=== PATIENT | female | born 1960 | race Caucasian/White ===

== ENCOUNTER 2019-04-22 13:31 | Day surgery (SDC) | payer OTHER ==
[2019-04-19 15:22] VITALS: BMI 20.7
[~2019-04-22 13:31] MED LIST: DEXAMETHASONE SOD PHOSPHATE 10 MG/ML 1 ML VIAL IV ONE; HYDROmorphone 0.5 MG/0.5 ML SYRINGE IVP PRN; LACTATED RINGERS 1,000 ML IV SCH; MIDAZOLAM 2 MG/2 ML VIAL IV PRN; ONDANSETRON 4 MG/2 ML VIAL IVP ONE; SCOPOLAMINE 1.5MG/72HR PATCH TRANSDERM ONE; ceFAZolin IN SWFI 2 GM/20 ML SYRINGE IVP ONE
[2019-04-22] MEDS ORDERED: LIDOCAINE 1% 20 ML VIAL (10MG/ML) FOR IV START INTRADERMA ONE (14:13)
[2019-04-22] MEDS ORDERED: MIDAZOLAM (PF) 2 MG/2 ML VIAL IVP ONE (14:41)
[2019-04-22] MEDS ORDERED: GLYCOPYRROLATE 0.2 MG/ML 2 ML VIAL ONE (15:07)
[2019-04-22] MEDS ORDERED: PROPOFOL 10 MG/ML 20 ML VIAL IV ONE (15:07)
[2019-04-22] MEDS ORDERED: ROPIVACAINE 5 MG/ML 30 ML VIAL ONE (15:07)
[2019-04-22] MEDS ORDERED: diphenhydrAMINE 50 MG/ML 1 ML VIAL ONE (15:07)
[2019-04-22] MEDS ORDERED: MIDAZOLAM 2 MG/2 ML VIAL ONE (15:07)
[2019-04-22] MEDS ORDERED: KETAMINE 10 MG/ML 20 ML VIAL ONE (15:07)
[2019-04-22] MEDS ORDERED: fentaNYL (PF) 50 MCG/ML 2 ML AMP ONE (15:07)
[2019-04-22] MEDS ORDERED: LIDOCAINE 2%-EPI 1:100,000 20 ML VIAL ONE (15:07)
[2019-04-22] MEDS ORDERED: PHENYLEPHRINE-0.9% NACL SYG 1 MG/10 ML SYRINGE ONE (15:07)
[2019-04-22] MEDS ORDERED: BUPIVACAIN-EPI 0.5%-1:200,000 30 ML VIAL SQ ONE (15:12)
[2019-04-22] MEDS ORDERED: LACTATED RINGERS 1,000 ML IV ONE (15:41)
--- NOTE | 2019-04-22 16:20 | P.ANPRN ---
Procedure Note - Anesthesia - Nerve Block Performed Right Axillary Single Time Out Performed: Yes Date of Procedure: 04/22/19 Procedure Start Time: 14:15 Procedure Stop Time: 14:22 Location of Patient Procedure: PreOp Indication: Acute Post-Operative Pain, Dx/Pain Location (Right Wrist Pain) Sedation Type: Sedate with meaningful contact maintained Preparation: Sterile Prep Position: Supine Catheter: None Needle Types: Pajunk Needle Gauge: 21 Technique: Ultrasound Injectate: 0.5% Ropivacaine (see comment for volume) (20ml) Blood Aspirated: No Pain Paresthesia on Injection Noted: No Resistance on Injection: Normal Events: Uneventful and Well Tolerated
[2019-04-22 17:26] VITALS: TEMP 97.6
--- NOTE | 2019-04-22 17:44 | P.OP ---
Date of Procedure: 04/22/19 Preoperative Diagnosis: 1. Displaced intra-articular right distal radius fracture 2. Nicotine addiction Postoperative Diagnosis: 1. Displaced intra-articular right distal radius fracture 2. Nicotine addiction Procedure(s) Performed: Open reduction and internal fixation of displaced, intra-articular right distal radius fracture (3 parts) Implants: Acumed Acu-loc2 narrow left locking volar distal radius plate with locking and cortical screws Anesthesia: MAC, regional, local Surgeon: Jesse Fernandez Timing Inspector #1: Aubrie Morejon Estimated Blood Loss (ml): 10 Condition: stable Disposition: PACU Indications for Procedure: The patient is a 58-year-old female who spends to mechanical fall, resulting in a displaced right distal radius fracture. Treatment options (and associated risks and benefits) were discussed in the office. Surgical treatment was recommended. In preop, the patient denied any additional questions or concerns and wished to proceed with surgery. Consent forms were signed. The operative site was confirmed and marked. Description of Procedure: The patient was administered a regional nerve block by the anesthesia team and then was brought to the operating suite. She was positioned supine with the ope rative limb on an arm board. All bony prominences were well-padded. Monitored anesthesia was administered uneventfully. Prophylactic IV antibiotics were administered. A tourniquet was placed on the operative arm which was then prepped and draped in standard, sterile fashion. A timeout was performed, confirming the patient, the operative side, the site and the procedure to be performed: all team members expressed agreement. The limb was exsanguinated with an Esmarch and the tourniquet was inflated. A standard volar FCR approach was utilized. The skin was incised sharply. The subcutaneous tissue were bluntly spread. The FCR sheath was incised and the tendon was mobilized. The radial artery was identified and protected throughout the case. Blunt dissection proceeded down to the pronator quadratus. This was sharply released along its radial border and & subperiosteally elevated ulnarly. The fracture site was visualized. The primary fracture line was transverse across the metaphysis. A separate intra-articular fracture involving the radial styloid had been identified on preoperative imaging but was not visualized grossly from the volar surgical exposure. A manual reduction was attempted but full yarsanism of radial height and dorsal tilt was not achieved. A Perkins elevator was used to gently release the impacted dorsal fragments. The reduction maneuver was repeated and sati sfactory initial alignment was confirmed with fluoroscopy. With the fracture held in reduced position, a 0.062 K wire was inserted percutaneously into the radial styloid and advanced across the fracture and into metaphysis for provisional reduction. The plate was selected, based on the patients anatomy and fracture pattern, and was positioned on the volar radius. It was provisionally pinned in place with K-wires and its position was confirmed on imaging. A cortical screw was drilled, measured and inserted into the oblong hole of the shaft. The position of the plate was checked on orthogonal views: residual dorsal angulation and radial column shortening remained. The distal K wires holding the plate were removed. The K wire through the radial styloid was withdrawn back across the fracture site. The fracture was manipulated again to improve radial length and volar tilt. This was confirmed on imaging and the distal provisional K wires were reinserted. Locking screws were then drilled, measured and inserted distally, confirming length and trajectory with fluoroscopy. An additional cortical screw was drilled and inserted to further secure the plate to the metaphysis. The percutaneous and provisional K wires were removed. Final x-rays were obtained which revealed satisfactory reduction of the fracture. An inclined lateral view was obtained to confirm extra-articular screw placement. The wrist was then ranged under live fluoroscopy - no motion of the fracture fragments or fixation construct was appreciated. The tourniquet was released after 66 minutes at 250 mm Hg. Hemostasis was obtained with electrocautery and held pressure but there was mild persistent oozing from the tissues, likely secondary to the patient's pre-op use of aspirin and Plavix. The wound was thoroughly irrigated with normal saline. The pronator was placed back in its normal position but was not repaired. The incision was closed with a running 4-0 nylon suture. Marcaine with epinephrine was injected into the perioperative subcutaneous tissues for adjunctive postoperative pain control and hemostasis. A sterile dressing was applied followed by a resting volar splint. All sponge, needle and instrument counts were correct at the end of the case. The patient tolerated the procedure well and was taken to the recovery room in stable condition.
[2019-04-22 18:09] VITALS: BP 135/88; PULSE 93; RESP 16
--- NOTE | 2019-04-23 11:36 | FL ---
Fluoroscopy History: ORIF radius fracture ORIF RIGHT DISTAL RADIUS-1 min 23 sec fl
== END 2019-04-22 18:26 | disposition home or self-care (01) ==
LOC: OR 13:31
PROVIDERS: ATTEND Orthopaedic Surgery
DX: S52.571A Other intraarticular fracture of lower end of right radius, initial encounter for closed fracture (principal); W17.89XA Other fall from one level to another, initial encounter; Y93.89 Activity, other specified; I10 Essential (primary) hypertension; E78.2 Mixed hyperlipidemia; E03.9 Hypothyroidism, unspecified; I69.320 Aphasia following cerebral infarction; K21.9 Gastro-esophageal reflux disease without esophagitis; F17.210 Nicotine dependence, cigarettes, uncomplicated; H91.92 Unspecified hearing loss, left ear; Z90.710 Acquired absence of both cervix and uterus; G56.01 Carpal tunnel syndrome, right upper limb; Z79.02 Long term (current) use of antithrombotics/antiplatelets; Z79.1 Long term (current) use of non-steroidal anti-inflammatories (NSAID); Z79.890 Hormone replacement therapy; Z79.891 Long term (current) use of opiate analgesic; Z79.899 Other long term (current) drug therapy; Z79.82 Long term (current) use of aspirin
CPT/HCPCS: 25609; 64417; 73100; C1713; J2250 ×2; J1200; J1100; J2405; J3010; J2795; J2370; J2704; J0690; 64413; 64486

== ENCOUNTER → 2023-04-24 | Outpatient (CLI) | payer OTHER ==
--- NOTE | 2023-04-28 08:04 | PE ---
EXAMINATION TYPE: PET CT fusion skull to thigh DATE OF EXAM: 04/24/2023 COMPARISON: NONE at this institution. HISTORY: Solitary pulmonary nodule, recent abnormal CT TECHNIQUE: Following the intravenous administration of 10.0 mCi of F-18 FDG, whole body images are p erformed from the skull base to the midthigh. Images are reviewed on the computer in the coronal, ax ial, and sagittal planes. Reconstructed rotating images are created on independent workstation and r eviewed on the computer. A localization and attenuation correction CT is performed in conjunction w ith the PET scan. Blood glucose level equals 83. SCAN: Initial Scan FINDINGS: SKULL BASE AND NECK: Mild increased symmetric uptake anterior tongue base presumed physiologic. Mild diffuse uptake throughout slightly enlarged thyroid gland, correlate for possible hyperthyroidism. N o suspicious hypermetabolic masses or adenopathy. CHEST, MEDIASTINUM, AND HILAR REGION: Wedge-shaped mass and/or masslike consolidation extending from left hilar region through the anterior left lung apex. Masslike hypermetabolic uptake measures approx imate 6.5 x 6.7 cm axial image 67 abutting the mediastinum, max SUV is 11.07. Abnormal hypermetabolic subcentimeter lymph node anterior to the aortic arch axial image 59, Max SUV is 4.25 on axial image 62. No abnormal hypermetabolic uptake in the right lung. ABDOMEN AND PELVIS: Abnormal hypermetabolic 3.0 cm round subtle low density mass in the distal pancre atic body axial image 118, max SUV is 10.57 on axial image 121. OSSEOUS STRUCTURES: No areas of abnormal hypermetabolic uptake. S-shaped scoliosis is noted. OTHER CT: Ygun-re-gfwjqpin calcified plaque bilateral carotid bulb level. Moderate to severe three-ve ssel coronary artery calcification. Moderate to large size hiatal hernia. Gallbladder has distended margins. Atherosclerotic and aneurysmal abdominal aorta measuring up to 3.7 cm transversely axial image 128. Patient has little intra-abdominal fat. Scattered pelvic phlebolith s. Uterus surgically absent or markedly atrophic. IMPRESSION: Suspicious central left mid lung mass worrisome for neoplasm with postobstructive atelect asis into the left lung apex. Possible metastatic lesion as there is additional suspicious hypermetab olic mass in the distal pancreatic body. Bronchoscopy with sampling and CT-guided sampling of pancrea tic lesion should be considered to evaluate both levels.
== END | disposition home or self-care (01) ==
LOC: RADPETMAIN 11:33
PROVIDERS: ATTEND Internal Medicine
DX: J98.11 Atelectasis (principal); R91.1 Solitary pulmonary nodule
CPT/HCPCS: 78815; A9552

== ENCOUNTER 2023-05-18 11:16 | Day surgery (SDC) | payer OTHER ==
[2023-05-13 12:21] VITALS: BMI 20.5
[~2023-05-18 11:16] MED LIST changes: -DEXAMETHASONE SOD PHOSPHATE 10 MG/ML 1 ML VIAL IV ONE; -HYDROmorphone 0.5 MG/0.5 ML SYRINGE IVP PRN; +LIDOCAINE 1% (10MG/ML) FOR IV START INTRADERMA PRN; -MIDAZOLAM 2 MG/2 ML VIAL IV PRN; -ONDANSETRON 4 MG/2 ML VIAL IVP ONE; -SCOPOLAMINE 1.5MG/72HR PATCH TRANSDERM ONE; -ceFAZolin IN SWFI 2 GM/20 ML SYRINGE IVP ONE
[2023-05-18 12:08] LABS: Glucose,Whole Blood 112 mg/dL (70-110)
[2023-05-18] MEDS ORDERED: PHENYLEPHRINE-0.9% NACL SYG 1,000 MCG/10 ML SYRINGE ONE (12:16)
[2023-05-18] MEDS ORDERED: NEOSTIGMINE 1 MG/ML 10 ML VIAL ONE (12:16)
[2023-05-18] MEDS ORDERED: PROPOFOL 10 MG/ML 20 ML VIAL IV ONE (12:16)
[2023-05-18] MEDS ORDERED: GLYCOPYRROLATE 0.2 MG/ML 2 ML VIAL ONE (12:16)
[2023-05-18] MEDS ORDERED: MIDAZOLAM 2 MG/2 ML VIAL ONE (12:16)
[2023-05-18] MEDS ORDERED: KETAMINE 10 MG/ML 20 ML VIAL ONE (12:16)
[2023-05-18] MEDS ORDERED: SUCCINYLCHOLINE CHLORIDE 200 MG/10 ML VIAL IV ONE (12:16)
[2023-05-18] MEDS ORDERED: ROCURONIUM 10 MG/ML (5 ML VIAL) IV ONE (12:16)
[2023-05-18] MEDS ORDERED: LIDOCAINE 4% LTA KIT (4 ML) TOPICAL ONE (12:16)
[2023-05-18] MEDS ORDERED: LIDOCAINE 2% INJ 20 MG/ML (2 ML VIAL) ONE (12:16)
--- NOTE | 2023-05-18 13:08 | P.PCN ---
Date of Procedure: 05/18/23 Preoperative Diagnosis: Left upper lobe mass Postoperative Diagnosis: Left upper lobe mass Procedure(s) Performed: Flexible bronchoscopy, transbronchial biopsies, transbronchial brushing, bronchial lavage of the left upper lobe Endobronchial ultrasound and transbronchial needle aspirate of the left upper lobe mass Anesthesia: WILBERT Surgeon: Regina Coronado Estimated Blood Loss (ml): 5 Operative Findings: This procedure was done under general anesthesia. The patient was intubated by a #8 orotracheal tube. The patient was placed on a mechanical ventilator. An adapter was attached to the orotracheal tube and following that and flexible bronchoscopy was done for airway inspection. Distal trachea was within normal limits. Examination of the right side included the right mainstem bronchus, right upper lobe bronchus, bronchus intermedius, right middle lobe bronchus and right lower lobe bronchus and the various 10 segments on the right. Airways are patent and within normal limits. Examination of the left mainstem bronchus was within normal limits. The ramonita between the left upper lobe and the left lower lobe was within normal limits. The left upper lobe bronchus was gradually more tapered and there was complete obstruction of the left upper lobe apical segment due to circumferential tumor growing around the airway and both extrinsic and intrinsic airway obstruction. Similar findings were seen in the lingular segment although abnormalities were less severe. Examination of the left lower lobe bronchus was within normal limits. The flexible bronchoscope was directed to the apical segment of the left upper lobe and transbronchial biopsies of the left upper lobe mass was done. I was unable to advance the forceps to its full extent as the airway was getting progressively more tapered and obstructed distally. Approximately 6-8 transbronchial biopsies were obtained, and similar number of transbronchial biopsies were obtained from the lingular segment of the left upper lobe. Endobronchial brushings of the apical segment was done using endobronchial brush. Following that, bronchioloalveolar lavage of the left upper lobe was done. A total of 100 mL of fluid was infused and approximately 20 mL of bloody aspirate was obtained. Following that, the flexible bronchoscope was removed and endobronchial ultraso und was inserted. Mediastinal lymph node evaluation showed no significant mediastinal lymph node enlargement. The bronchoscope was then directed to the left upper lobe and the left upper lobe mass was visualized using the ultrasound probe. At that point, transbronchial needle aspirate of the left upper lobe mass was done using a 22-gauge vizishot needle and a total of 5 passes was taken. No endobronchial bleeding. Procedure was completed without any complications. The endobronchial ultrasound was removed. The flexible bronchoscope was inserted. The regular suctioning was done. The patient was extubated and transferred to recovery in stable condition. A chest x-rays to follow. I will contact the patient back within the next few days to discuss the results of the biopsy.
[2023-05-18 13:21] VITALS: TEMP 98
--- NOTE | 2023-05-18 13:44 | XR ---
EXAMINATION TYPE: XR chest 1V DATE OF EXAM: 05/18/2023 HISTORY: Status post biopsy rule out pneumothorax COMPARISON: None. TECHNIQUE: Single view of the chest is submitted. FINDINGS: Left upper lobe mass. No evidence of pneumothorax in a patient who is status post biopsy. The heart is stable. Hilar and mediastinal structures are within normal limits. Degenerative changes are seen of the dorsal spine. IMPRESSION: 1. No evidence of pneumothorax in a patient who is status post biopsy.
[2023-05-18 14:09] VITALS: RESP 18
[2023-05-18 14:30] VITALS: PULSE 78
[2023-05-18 15:03] VITALS: BP 147/78
== END 2023-05-18 15:03 | disposition home or self-care (01) ==
LOC: ORWHC2ENDO 11:16
PROVIDERS: ATTEND Internal Medicine Critical Care Medicine
DX: C34.32 Malignant neoplasm of lower lobe, left bronchus or lung (principal); J44.9 Chronic obstructive pulmonary disease, unspecified; I10 Essential (primary) hypertension; E03.9 Hypothyroidism, unspecified; E78.2 Mixed hyperlipidemia; K21.9 Gastro-esophageal reflux disease without esophagitis; Z86.73 Personal history of transient ischemic attack (TIA), and cerebral infarction without residual deficits; Z79.1 Long term (current) use of non-steroidal anti-inflammatories (NSAID); Z79.82 Long term (current) use of aspirin; Z87.891 Personal history of nicotine dependence; Z79.891 Long term (current) use of opiate analgesic; Z79.890 Hormone replacement therapy; Z79.899 Other long term (current) drug therapy
CPT/HCPCS: 31654; 88104; 88108; 88305; 88342; 88341; 71045; 31628; 31629; 31623; 31624; J2250; J0330; J2710; J2704; J2001; J2371; 31625; 31652; 87070; 87102; 87116; 87205; 87206; 87496; 87498; 87502; 87529; 87634; 87798

== ENCOUNTER → 2023-06-01 | Outpatient (CLI) | payer OTHER ==
--- NOTE | 2023-06-01 16:06 | US ---
EXAMINATION TYPE: US venous doppler duplex UE LT DATE OF EXAM: 06/01/2023 COMPARISON: NONE CLINICAL INDICATION: Female, 62 years old with history of C34.12 MALIGNANT NEOPLASM UPPER LOBE, LT BR ONCHUS OR LUNG; Pain and edema left neck. Patient on blood thinner SIDE PERFORMED: left Left Arm: no evidence of DVT as visualized. Rouleaux flow left jugular vein. Multiple hypoechoic area s noted left neck with largest = 1.8 x 1.7 x 1.8cm ?lymph nodes vs other etiology IMPRESSION: Grayscale, color doppler, spectral doppler imaging performed of the deep veins of the upper extremiti es. There is normal flow, compressibility and vascular waveforms.
== END | disposition home or self-care (01) ==
LOC: RADUSWWP 14:59
PROVIDERS: ATTEND Radiology Radiation Oncology
DX: C34.12 Malignant neoplasm of upper lobe, left bronchus or lung (principal); Z79.01 Long term (current) use of anticoagulants

== ENCOUNTER → 2023-06-08 | Outpatient (CLI) | payer OTHER ==
--- NOTE | 2023-06-09 21:18 | MR ---
EXAMINATION TYPE: MR brain wo/w con DATE OF EXAM: 06/08/2023 6:57 PM CLINICAL INDICATION:Female, 62 years old with history of C34.11; Lung cancer, Hx of ochoa COMPARISON: None TECHNIQUE: Multi planar, multi sequence imaging was performed through the brain including: T1, T2, In version recovery, susceptibility weighted imaging and gradient echo imaging and Diffusion weighted im aging. The patient was then given intravenous contrast and multi planar, T1 fat-saturation images wer e obtained. IV Contrast: 4.5 cc Gadavist FINDINGS: Left MCA territory/parietal region encephalomalacia from remote injury. No evidence for acu te CVA. Focus of enhancement in the left occipital lobe compatible with metastatic lesion measuring 10 x 6 mm . Additional metastatic enhancing lesion in the left frontal lobe measuring 3 mm. The holloway-white junctions, ventricular system, basal cisterns appear unremarkable. Diffusion-weighted imaging shows no evidence of restricted diffusion to suggest acute/subacute infarct. Intracranial art erial flow voids are maintained. Midline structures show no abnormality. Scattered foci and confluent areas of of high T2 signal intensity are seen within the periventricular white matter. The bone marrow signal is within normal limits. Paranasal sinuses and mastoid air cells: No significant paranasal sinus disease. Visualized orbits: Orbital contents are intact. IMPRESSION: 1. There are at least 2 metastatic enhancing foci including the left occipital and left frontal lobes .. 2. No injury to the left parietal region with evidence of focal malacia. 3. No evidence for acute/subacute CVA. 4. Nonspecific white matter changes, likely related to small vessel ischemic disease
== END | disposition home or self-care (01) ==
LOC: RADMRIMAIN 17:53
PROVIDERS: ATTEND Internal Medicine
DX: C79.31 Secondary malignant neoplasm of brain (principal); C34.11 Malignant neoplasm of upper lobe, right bronchus or lung; R90.82 White matter disease, unspecified
CPT/HCPCS: 70553; A9585

== ENCOUNTER → 2023-06-18 | Outpatient (CLI) | payer OTHER ==
--- NOTE | 2023-06-18 12:55 | US ---
EXAMINATION TYPE: US thyroid st tissue head/neck DATE OF EXAM: 06/18/2023 COMPARISON: PET CT CLINICAL INDICATION: Female, 62 years old with history of C34.11 LUNG CA; Lung CA, pt states palpable lump left lateral neck x 2 weeks Multiple (>5), probable abnormal, enlarged lymph nodes within left lateral neck in area of pt's pal pable, largest appearing was measured= 2.9 x 1.6 x 1.8 cm IMPRESSION: Abnormal lymph nodes within the neck in the area of palpable abnormality concerning for neoplastic pr ocess given patient's history of lung cancer are favored represent metastatic disease. Not well appre ciated on prior PET/CT on 04/24/2023 suggesting progression of disease.
== END | disposition home or self-care (01) ==
LOC: RADUSWWP 12:20
PROVIDERS: ATTEND Internal Medicine
DX: C34.11 Malignant neoplasm of upper lobe, right bronchus or lung (principal); C25.2 Malignant neoplasm of tail of pancreas; Z71.3 Dietary counseling and surveillance
CPT/HCPCS: 76536

== ENCOUNTER 2023-08-28 16:46 | Inpatient (IN) | payer OTHER ==
--- NOTE | 2023-08-28 17:21 | ED ---
General Adult HPI - General Source: patient, family, RN notes reviewed <Maddison Bob - Last Filed: 08/28/23 17:23> <Tae Salmeron - Last Filed: 08/28/23 21:54> - General Stated complaint: SOB Time Seen by Provider: 08/28/23 17:21 - History of Present Illness Initial comments: 62-year-old female presents to the emergency department with chief complaint of increased shortness of breath. She has a history of lung cancer and has had pleural effusions in the past. She states that she feels similar to when she had her pleural effusions last time. She states that she follows with Dr. Agustín mohan. She had an outpatient chest XR done today. (Maddison Bob) 62-year-old female with past medical history significant for small cell lung cancer follows with Dr. Felix presents to the ED with the chief complaints of dyspnea. Patient notes history of bilateral pleural effusions in the past which have required thoracentesis. Last admission for this was on 07/28/23. Patient states over the last week has had increased dyspnea. Also notes pain of the chest however patient reports that this is consistent with her history of cancer. No abdominal pain. No nausea vomiting diarrhea. No other complaints. (Tae Salmeron) - Related Data Home Medications Medication Instructions Recorded Confirmed Atorvastatin [Lipitor] 40 mg PO DAILY 05/13/23 07/27/23 Cyclobenzaprine [Flexeril] 5 mg PO HS 05/13/23 07/27/23 Levothyroxine Sodium 112 mcg PO DAILY 05/13/23 07/27/23 cilostazoL [Pletal] 100 mg PO BID 05/13/23 07/27/23 atenoloL [Tenormin] 25 mg PO DAILY 05/18/23 07/27/23 fentaNYL 50MCG/HR PATCH [Duragesic 1 patch TRANSDERM Q72H 07/27/23 07/27/23 50MCG/HR] lisinopriL [Zestril] 20 mg PO DAILY 07/27/23 07/27/23 oxyCODONE-APAP 7.5-325MG [Percocet 1 tab PO Q6HR PRN 07/27/23 07/27/23 7.5-325 mg] Previous Rx's Medication Instructions Recorded Acetaminophen Tab [Tylenol] 650 mg PO Q4HR PRN tab 07/28/23 Allergies Allergy/AdvReac Type Severity Reaction Status Date / Time No Known Allergies Allergy Verified 08/28/23 21:53 Review of Systems ROS Other: All systems not noted in ROS Statement are negative. <Maddison Bob - Last Filed: 08/28/23 17:23> ROS Other: All systems not noted in ROS Statement are negative. <Tae Salmeron - Last Filed: 08/28/23 21:54> ROS Statement: Those systems with pertinent positive or pertinent negative responses have been documented in the HPI. Past Medical History Past Medical History: Cancer, CVA/TIA, GERD/Reflux, Hearing Disorder / Deafness, Hyperlipidemia, Hypertension, Musculoskeletal Disorder, Thyroid Disorder Additional Past Medical History / Comment(s): LUNG CANCER. CVA 2014, MILD SPE ECH PROB. TOTAL OF 9 STROKES PER SON. LT EAR HEARING LOSS. Calloped left lung History of Any Multi-Drug Resistant Organisms: None Reported Past Surgical History: Bladder Surgery, Hernia Repair, Hysterectomy Additional Past Surgical History / Comment(s): COLONOSCOPY Past Anesthesia/Blood Transfusion Reactions: No Reported Reaction Past Psychological History: No Psychological Hx Reported Smoking Status: Former smoker Past Alcohol Use History: None Reported Past Drug Use History: Marijuana - Past Family History Father Family Medical History: Cancer Additional Family Medical History / Comment(s): THROAT CA <Maddison Bob - Last Filed: 08/28/23 17:23> General Exam <Maddison Bob - Last Filed: 08/28/23 17:23> General appearance: alert, in no apparent distress ENT exam: Present: normal exam Neck exam: Present: normal inspection Respiratory exam: Present: other (Poor respiratory effort. Crackles bilaterally.) Cardiovascular Exam: Present: regular rate, normal rhythm Neurological exam: Present: alert, oriented X3 Skin exam: Present: warm, dry <Tae Salmeron - Last Filed: 08/28/23 21:54> - General Exam Comments Initial Comments: Visual Physical Exam Vital signs reviewed General: Well-appearing, nontoxic, no acute distress. Head: Normocephalic, atraumatic Eyes: PERRLA, EOMI ENT: Airway patent Chest: Nonlabored breathing Skin: No visual rash, normal skin tone Neuro: Alert and oriented 3 Musculoskeletal: No gross abnormalities (Maddison Bob) Course Vital Signs 08/28/23 08/28/23 08/28/23 17:20 19:09 21:09 Temperature 99.1 F Pulse Rate 100 100 105 H Respiratory 18 20 20 Rate Blood Pressure 141/96 151/78 160/81 O2 Sat by Pulse 100 100 96 Oximetry Medical Decision Making <Maddison Bob - Last Filed: 08/28/23 17:23> - Lab Data Result diagrams: 08/28/23 17:47 08/28/23 17:47 <Tae Salmeron - Last Filed: 08/28/23 21:54> - Medical Decision Making I preformed the quick note portion of this chart. Electronically signed by Maddison Bob PA-C (Maddison Bob) Was pt. sent in by a medical professional or institution (YVES Nguyen, [employer], urgent care, hospital, or longterm...) When possible be specific @ -No Did you speak to anyone other than the patient for history (EMS, parent, family, police, friend...)? What history was obtained from this source @ -No Did you review nursing and triage notes (agree or disagree)? Why? @ -I reviewed and agree with nursing and triage notes Were old charts reviewed (outside hosp., previous admission, EMS record, old EKG, old radiological studies, urgent care reports/EKG's, longterm records)? Report findings @ -No old charts were reviewed Differential Diagnosis (chest pain, altered mental status, abdominal pain women, abdominal pain men, vaginal bleeding, weakness, fever, dyspnea, syncope, headache, dizziness, GI bleed, back pain, seizure, CVA, palpatations, mental health, musculoskeletal)? @ -Differential Dyspnea: Coronary syndrome, arrhythmia, tamponade, asthma, COPD, pulmonary embolism, pneumonia, pneumothorax, pulmonary effusion, anaphylaxis, diabetic ketoacidosis, flailed chest, pulmonary contusion, diaphragmatic rupture, anemia, neuromuscular, this is not meant to be an all-inclusive list. EKG interpreted by me (3pts min.). @ -EKG shows a sinus rhythm at [address]-T wave changes. GA 144, QRS 4, QT/QTc 309/365. X-rays interpreted by me (1pt min.). @ -Chest x-ray interpreted by me showing findings consistent with bilateral pleural effusion appearing worse than prior. CT interpreted by me (1pt min.). @ -None done U/S interpreted by me (1pt. min.). @ -None done What testing was considered but not performed or refused? (CT, X-rays, U/S, labs)? Why? @ -None What meds were considered but not given or refused? Why? @ -None Did you discuss the management of the patient with other professionals (professionals i.e. , PA, [employer], lab, RT, psych nurse, social worker health services, immigration lawyer, teacher, real estate utilization officer, cyanide case hardener)? Give summary @ -Discussed with [facility], who accepts admission. Was smoking cessation discussed for >3mins.? @ -No Was critical care preformed (if so, how long)? @ -No Were there social determinants of health that impacted care today? How? (Homelessness, low income, unemployed, alcoholism, drug addiction, tr ansportation, low edu. Level, literacy, decrease access to med. care, nursing home, rehab)? @ -No Was there de-escalation of care discussed even if they declined (Discuss DNR or withdrawal of care, Hospice)? DNR status @ -No What co-morbidities impacted this encounter? (DM, HTN, Smoking, COPD, CAD, Cancer, CVA, ARF, Chemo, Hep., AIDS, mental health diagnosis, sleep apnea, morbid obesity)? @ -Lung CA Was patient admitted / discharged? Hospital course, mention meds given and route, prescriptions, significant lab abnormalities, going to OR and other pertinent info. @ -Admission 62-year-old woman with a past medical history significant for lung cancer presenting to the ED with chief complaint of progressively worsening dyspnea over the past week. Laboratory studies reviewed significant for elevated white blood cell count at 29.6, anemia at 8.9, thrombocytosis at 745, elevated neutrophils at 27.8, and an elevated BNP at 2470. Chest x-ray revealed bilateral pleural effusion. Patient will be admitted with consult to pulmonology Drug Therapy requiring intensive monitoring for toxicity (Heparin, Nitro, Insulin, Cardizem)? @ -No Were any procedures done? @ -No Diagnosis/symptom? @ -Pleural effusion, dyspnea Acute, or Chronic, or Acute on Chronic? @ -Acute on chronic Uncomplicated (without systemic symptoms) or Complicated (systemic symptoms)? @ -Uncomplicated Side effects of treatment? @ -No Exacerbation, Progression, or Severe Exacerbation? @ -No Poses a threat to life or bodily function? How? (Chest pain, USA, SC, pneumonia, PE, COPD, DKA, ARF, appy, cholecystitis, CVA, Diverticulitis, Homicidal, Suicidal, threat to staff... and all critical care pts) @ -No (Tae Salmeron) - Lab Data Lab Results 08/28/23 08/28/23 08/28/23 Range/Units 17:47 17:47 17:47 WBC 29.6 H (3.8-10.6) k/uL RBC 3.10 L (3.80-5.40) m/uL Hgb 8.9 L (11.4-16.0) gm/dL Hct 28.6 L (34.0-46.0) % MCV 92.3 (80.0-100.0) fL MCH 28.8 (25.0-35.0) pg MCHC 31.3 (31.0-37.0) g/dL RDW 15.6 H (11.5-15.5) % Plt Count 745 H (150-450) k/uL MPV 8.8 Neutrophils % 94 % Lymphocytes % 3 % Monocytes % 2 % Eosinophils % 1 % Basophils % 0 % Neutrophils # 27.9 H (1.3-7.7) k/uL Lymphocytes # 0.8 L (1.0-4.8) k/uL Monocytes # 0.5 (0-1.0) k/uL Eosinophils # 0.2 (0-0.7) k/uL Basophils # 0.0 (0-0.2) k/uL Manual Slide Review Performed Hypochromasia Marked PT 10.9 (10.0-12.5) sec INR 1.0 (<1.2) APTT 28.8 (22.0-30.0) sec Sodium 140 (137-145) mmol/L Potassium 3.8 (3.5-5.1) mmol/L Chloride 105 (98-107) mmol/L Carbon Dioxide 23 (22-30) mmol/L Anion Gap 12 mmol/L BUN 18 H (7-17) mg/dL Creatinine 0.49 L (0.52-1.04) mg/dL Est GFR (CKD-EPI)AfAm >90 (>60 ml/min/1.73 sqM) Est GFR (CKD-EPI)NonAf >90 (>60 ml/min/1.73 sqM) Glucose 86 (74-99) mg/dL Calcium 8.6 (8.4-10.2) mg/dL Total Bilirubin 0.5 (0.2-1.3) mg/dL AST 22 (14-36) U/L ALT 12 (4-34) U/L Alkaline Phosphatase 143 H (38-126) U/L Troponin I (0.000-0.034) ng/mL NT-Pro-B Natriuret Pep pg/mL Total Protein 7.2 (6.3-8.2) g/dL Albumin 2.8 L (3.5-5.0) g/dL 08/28/23 08/28/23 Range/Units 20:08 20:08 WBC (3.8-10.6) k/uL RBC (3.80-5.40) m/uL Hgb (11.4-16.0) gm/dL Hct (34.0-46.0) % MCV (80.0-100.0) fL MCH (25.0-35.0) pg MCHC (31.0-37.0) g/dL RDW (11.5-15.5) % Plt Count (150-450) k/uL MPV Neutrophils % % Lymphocytes % % Monocytes % % Eosinophils % % Basophils % % Neutrophils # (1.3-7.7) k/uL Lymphocytes # (1.0-4.8) k/uL Monocytes # (0-1.0) k/uL Eosinophils # (0-0.7) k/uL Basophils # (0-0.2) k/uL Manual Slide Review Hypochromasia PT (10.0-12.5) sec INR (<1.2) APTT (22.0-30.0) sec Sodium (137-145) mmol/L Potassium (3.5-5.1) mmol/L Chloride (98-107) mmol/L Carbon Dioxide (22-30) mmol/L Anion Gap mmol/L BUN (7-17) mg/dL Creatinine (0.52-1.04) mg/dL Est GFR (CKD-EPI)AfAm (>60 ml/min/1.73 sqM) Est GFR (CKD-EPI)NonAf (>60 ml/min/1.73 sqM) Glucose (74-99) mg/dL Calcium (8.4-10.2) mg/dL Total Bilirubin (0.2-1.3) mg/dL AST (14-36) U/L ALT (4-34) U/L Alkaline Phosphatase (38-126) U/L Troponin I <0.012 (0.000-0.034) ng/mL NT-Pro-B Natriuret Pep 2470 pg/mL Total Protein (6.3-8.2) g/dL Albumin (3.5-5.0) g/dL Disposition <Maddison Bob - Last Filed: 08/28/23 17:23> Time of Disposition: 21:54 <Tae Salmeron - Last Filed: 08/28/23 21:54> Clinical Impression: Dyspnea, Pleural effusion Disposition: ADMITTED IP TO THIS HOSP Referrals: Kerwin Rao MD [Primary Care Provider] - 1-2 days
[2023-08-28 18:30] LABS: Basophils % (A) 0 %; Eosinophils # (A) 0.2 k/uL (0-0.7); Eosinophils % (A) 1 %; HCT 28.6 % (34.0-46.0); HGB 8.9 gm/dL (11.4-16.0); Hypochromasia Marked; Lymphocytes # (A) 0.8 k/uL (1.0-4.8); Lymphocytes % (A) 3 %; MCH 28.8 pg (25.0-35.0); MCHC 31.3 g/dL (31.0-37.0); MCV 92.3 fL (80.0-100.0); Mean Platelet Volume 8.8; Monocytes # (A) 0.5 k/uL (0-1.0); Monocytes % (A) 2 %; Neutrophils # (A) 27.9 k/uL (1.3-7.7); Neutrophils % (A) 94 %; Platelet Count 745 k/uL (150-450); RDW 15.6 % (11.5-15.5); WBC 29.6 k/uL (3.8-10.6)
[2023-08-28 18:42] LABS: ALT 12 U/L (4-34); AST 22 U/L (14-36); African American GFR (CKD) >90 (>60 ml/min/1.73 sqM); Albumin 2.8 g/dL (3.5-5.0); Alkaline Phosphatase 143 U/L (38-126); Anion Gap 12 mmol/L; Blood Urea Nitrogen 18 mg/dL (7-17); Calcium 8.6 mg/dL (8.4-10.2); Carbon Dioxide 23 mmol/L (22-30); Chloride 105 mmol/L (98-107); Glucose 86 mg/dL (74-99); Non-African American GFR(CKD) >90 (>60 ml/min/1.73 sqM); Potassium 3.8 mmol/L (3.5-5.1); Sodium 140 mmol/L (137-145); Total Bilirubin 0.5 mg/dL (0.2-1.3); Total Protein 7.2 g/dL (6.3-8.2)
[2023-08-28 18:45] LABS: Partial Thromboplastin Time 28.8 sec (22.0-30.0); Prothrombin Time 10.9 sec (10.0-12.5)
[2023-08-28] MEDS ORDERED: ACETAMINOPHEN TAB 325 MG TAB PO PRN ×2 (21:54→22:52)
[2023-08-28] MEDS ORDERED: NALOXONE 0.4 MG/ML 1 ML VIAL IV PRN (21:54)
[2023-08-28] MEDS ORDERED: SODIUM CHLORIDE 0.9% 1,000 ML IV SCH (22:00)
[2023-08-28] MEDS ORDERED: ALBUTEROL NEBULIZED 2.5 MG/3 ML INHALATION PRN (22:52)
[2023-08-28] MEDS: lisinopriL 20 MG TAB PO SCH (23:16)
[2023-08-28] MEDS: atenoloL 25 MG TAB PO SCH (23:16)
[2023-08-28] MEDS: CYCLOBENZAPRINE 5 MG TAB PO SCH (23:16)
[2023-08-28] MEDS: HYDROmorphone 1 MG/ML 1 ML SYRINGE IVP PRN (23:17)
[2023-08-28] MEDS: cilostazoL 100 MG TAB PO SCH (23:17)
[2023-08-29] MEDS: LEVOTHYROXINE 112 MCG TAB PO SCH (05:25)
[2023-08-29] MEDS: cilostazoL 100 MG TAB PO SCH ×2 (08:20→20:00)
[2023-08-29] MEDS: lisinopriL 20 MG TAB PO SCH (08:20)
[2023-08-29] MEDS: ATORVASTATIN 40 MG TAB PO SCH (08:20)
[2023-08-29] MEDS: atenoloL 25 MG TAB PO SCH (08:20)
[2023-08-29] MEDS ORDERED: IPRATROPIUM-ALBUTEROL 3 ML NEB INHALATION PRN (09:31)
[2023-08-29] MEDS: HYDROmorphone 1 MG/ML 1 ML SYRINGE IVP PRN (13:08)
--- NOTE | 2023-08-29 13:24 | P.CNPUL ---
History of Present Illness Consult date: 08/29/23 Reason for consult: dyspnea, pleural effusion History of present illness: This is a 62-year-old female patient, hospitalized for shortness of breath. The patient is known to have metastatic non-small cell lung cancer of the lung with malignant left-sided pleural effusion. Initial CAT scan of the chest that was done on 04/06/2023 showed a large 7 x 6 cm pigmented soft tissue mass in the left perihilar region extending into the left upper lobe and invading the mediastinum and also causing obstruction of the left upper lobe bronchus. In a ddition, the patient had several pulmonary nodules largest in the right upper lobe measuring 1.7 cm and 5 mm and another 2 mm another densities in the right lower lobe and a 7 mm nodule in the left upper lobe. PET/CT that was done on 04/24/2023 showed metabolic intake and the involved area and in the distal pancreatic body. I performed a bronchoscopy on this patient on 05/18/2023 and the pathology was consistent with poorly differentiated non-small cell lung cancer. MRI of the brain that was done on 06/08/2023 showed metastatic lesions in the left frontal and occipital lobes. The PDL 1 expression was a mild 90% and the patient had KG 12 C mutation. Subsequently, the patient underwent a endoscopic ultrasound/EGD and biopsy of the pancreatic mass was positive for adenocarcinoma. She started radiation therapy to her left neck mass on 07/22/2023. 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 She did have cycle 1 of single agent Keytruda on 07/08/2023, and later on, the patient was started on libtayo . She presented to the hospital on 07/28/2023 and she was found to have a large left-sided pleural effusion and the drainage was done and the patient had a 1.5 L of fluid removed from the left pleural space and the fluid cytology was also noted to be positive for malignancy. She presented to the emergency department with worsening shortness of breath. Chest x-ray was done and shows a left perihilar mass and a left-sided pleural effusion. I was asked to evaluate the patient regarding left-sided pleural effusion. I noted that the fluid was quite limited and I ordered a CAT scan of the chest. The computed tomography scan of the chest was completed and it showed again a large left upper lobe mass causing complete obstruction of the left upper lobe bronchus. The patient had a very small left- sided pleural effusion and a small right-sided pleural effusion was also noted. The mediastinum on the right side was also involved as the patient had bulky hilar lymphadenopathy, the airway however was patent. Some atelectatic changes seen in the right lung base. A tiny pneumothorax is also present in the left apex. The seconds currently at 29, he was at 8.9, BUN is at 18 with a creatinine of 0.4. Troponins are negative. UA is negative. Hemoglobin is at 8.9. Normal coagulation profile. She is currently on 2 L of oxygen by nasal cannula with a pulse ox of 98%. She is afebrile. Breathing is nonlabored. Review of Systems CONSTITUTIONAL: Admits weight loss. EYES: Denies change in vision. EARS, NOSE, MOUTH, THROAT: Denies headaches, denies sore throat. CARDIOVASCULAR: Denies chest pain, palpitations or syncopal episodes. RESPIRATORY: See HPI. The patient continues to have shortness of breath with activity. No pleurisy. No hemoptysis. GASTROINTESTINAL: Denies change in appetite, abdominal pain, nausea and vomiting, or diarrhea GENITOURINARY: Denies hematuria, denies infections. MUSKULOSKELETAL: Denies pain, denies swelling. INTEGUMENTARY: Denies rash, denies eczema. NEUROLOGICAL: Denies recent memory loss, no recent seizure activity. PSYCHIATRIC: Denies anxiety, denies depression. HEMATOLOGIC/LYMPHATIC: Denies anemia, denies enlarged lymph node Past Medical History Past Medical History: Cancer, CVA/TIA, GERD/Reflux, Hearing Disorder / Deafness, Hyperlipidemia, Hypertension, Musculoskeletal Disorder, Thyroid Disorder Additional Past Medical History / Comment(s): LUNG CANCER. CVA 2015, MILD SPEECH PROB. TOTAL OF 9 STROKES PER SON. LT EAR HEARING LOSS. Collapsed left lung History of Any Multi-Drug Resistant Organisms: None Reported Past Surgical History: Bladder Surgery, Hernia Repair, Hysterectomy Additional Past Surgical History / Comment(s): COLONOSCOPY, thoracentesis Past Anesthesia/Blood Transfusion Reactions: No Reported Reaction Past Psychological History: No Psychological Hx Reported Smoking Status: Former smoker Past Alcohol Use History: None Reported Past Drug Use History: Marijuana Additional Drug Use History / Comment(s): Weekly - Past Family History Father Family Medical History: Cancer Additional Family Medical History / Comment(s): THROAT CA Medications and Allergies Home Medications Medication Instructions Recorded Confirmed Type Atorvastatin [Lipitor] 40 mg PO DAILY 05/13/23 08/28/23 History Cyclobenzaprine [Flexeril] 5 mg PO HS 05/13/23 08/28/23 History Levothyroxine Sodium 112 mcg PO DAILY 05/13/23 08/28/23 History cilostazoL [Pletal] 100 mg PO BID 05/13/23 08/28/23 History atenoloL [Tenormin] 25 mg PO DAILY 05/18/23 08/28/23 History fentaNYL 50MCG/HR PATCH [Duragesic 1 patch TRANSDERM Q72H 07/27/23 08/28/23 History 50MCG/HR] lisinopriL [Zestril] 20 mg PO DAILY 07/27/23 08/28/23 History oxyCODONE-APAP 7.5-325MG [Percocet 1 tab PO Q6HR PRN 07/27/23 08/28/23 History 7.5-325 mg] Acetaminophen Tab [Tylenol] 650 mg PO Q4HR PRN tab 07/28/23 08/28/23 Rx Albuterol Sulfate [Albuterol 2 puff INHALATION RT-Q4H PRN 08/28/23 08/28/23 History Sulfate Hfa] Allergies Allergy/AdvReac Type Severity Reaction Status Date / Time No Known Allergies Allergy Verified 08/28/23 21:53 Physical Exam Vitals: Vital Signs Temp Pulse Pulse Resp BP BP Pulse Ox 08/29/23 07:00 98.4 F 99 16 144/79 98 08/29/23 02:33 98.4 F 86 16 113/64 97 08/28/23 22:46 99.5 F 109 H 15 175/82 99 08/28/23 21:09 105 H 20 160/81 96 08/28/23 19:09 100 20 151/78 100 08/28/23 17:20 99.1 F 100 18 141/96 100 Intake and Output 08/28/23 08/29/23 08/29/23 22:59 06:59 14:59 Other: Voiding Method Toilet Toilet Toilet # Voids 1 Weight 43.091 kg GENERAL EXAM: Alert, 62-year-old white female, comfortable in no apparent distress. The patient is currently on 2 L of oxygen by nasal cannula. He has she looks quite cachectic with a body mass index is 17.9 HEAD: Normocephalic and atraumatic EYES: Normal reaction of pupils, equal size. NOSE: Clear with pink turbinates. THROAT: No erythema or exudates. NECK: Left neck mass. no JVD. CHEST: No chest wall deformity. LUNGS: Diminished left lung sounds. No wheezes, rhonchi, crackles. On 2 L/m nasal cannula. No conversational dyspnea or accessory muscle use.. CVS: S1 and S2 normal with no audible murmur, regular rhythm. No extra heart sounds ABDOMEN: No hepatosplenomegaly, active bowel sounds, no guarding or rigidity. SPINE: No scoliosis or deformity SKIN: No rashes CENTRAL NERVOUS SYSTEM: No focal deficits, tone is normal in all 4 extremities. EXTREMITIES: There is no peripheral edema or cyanosis. There is clubbing. Peripheral pulses are intact. Results - Laboratory Findings CBC and BMP: 08/28/23 17:47 08/28/23 17:47 PT/INR, D-dimer PT 10.9 sec (10.0-12.5) 08/28/23 17:47 INR 1.0 (<1.2) 08/28/23 17:47 Abnormal lab findings: Abnormal Labs 08/28/23 08/28/23 17:47 17:47 WBC 29.6 H RBC 3.10 L Hgb 8.9 L Hct 28.6 L RDW 15.6 H Plt Count 745 H Neutrophils # 27.9 H Lymphocytes # 0.8 L BUN 18 H Creatinine 0.49 L Alkaline Phosphatase 143 H Albumin 2.8 L - Diagnostic Findings Chest x-ray: image reviewed CT scan - chest: image reviewed Assessment and Plan Plan: Metastatic adenocarcinoma of the lung. The patient has a large bulky mass in the left suprahilar area invading the mediastinum causing obstruction of the left upper lobe bronchus. The patient has stage IV disease with [employer] metastases and malignant left-sided pleural effusion and pancreatic metastases. The patient has bulky mediastinal lymphadenopathy involving the right. The patient had a PDL 1 expression of 90%. The patient also had EKG 12 mL mutation. The patient subsequently was found to have a JAK2 exon 12 through 15 mutation ([id number]). The patient is currently on libtayo Malignant left-sided pleural effusion, post drainage and removal of 1.5 L of pleural fluid, current effusion is small Small right-sided pleural effusion Metastatic [employer] lesions involving left frontal and occipital lobes, asymptomatic and the patient was not given any radiation therapy at this point Metastatic pancreatic mass, biopsy confirmed Acute hypoxic respiratory failure currently on 2 L of oxygen by nasal cannula Shortness of breath secondary to above Leukocytosis, likely reactive. No evidence of any pneumonia based on the CAT scan findings History of CVA Hypertension Hyperlipidemia Hypothyroidism Plan No role for thoracentesis as the left-sided pleural effusion is very tiny and right-sided pleural effusion is small Titrate oxygen flow to maintain saturation above 90% Oncology consultation Monitor white cell count Prognosis poor based above-mentioned malignancy with obvious disease progression.
[2023-08-29 14:27] VITALS: BMI 17.9
--- NOTE | 2023-08-29 14:35 | P.HPIM ---
History of Present Illness H&P Date: 08/29/23 History of present illness; patient is 62-year-old lady with past medical history of lung cancer with metastasis to the neck,CVA/TIA, GERD, hearing disorder, hyperlipidemia, hypertension, thyroid disorder and former smoker who presented to the ER because of worsening shortness of breath. Patient was recently seen in the hospital in July of this year for similar complaints at this time, patient had Thoracentesis for left-sided pleural effusion done. Patient was all right one week back when she started noticing increasing shortness of breath on exertion. Patient also complaining of increased lethargy and weakness. Denies any fever or chills. There was no complain any chest pain. No complain of nausea, vomiting abdominal pain. Patient states shortness of breath was similar to her previous episode when she was diagnosed with pleural effusions and had thoracentesis done. Because of the symptoms, patient came to the ER Initial lab work done in the ER showed WBC 29.6, hemoglobin 8.9, platelet count 745, sodium 140, potassium 3.8, BUN 18, creatinine 0.49 Chest x-ray done in the ER showed bilateral pleural effusions Patient admitted to medicine service REVIEW OF SYSTEMS: CONSTITUTIONAL: No fever, as mentioned above HEENT: No recent visual problems or hearing problems. Denied any sore throat. CARDIOVASCULAR: No chest pain, orthopnea, PND, no palpitations, no syncope. PULMONARY: As mentioned in HPI GASTROINTESTINAL: No diarrhea, no nausea, no vomiting, no abdominal pain. NEUROLOGICAL: No headaches, no weakness, no numbness. HEMATOLOGICAL: Denies any bleeding or petechiae. GENITOURINARY: Denies any burning micturition, frequency, or urgency. MUSCULOSKELETAL/RHEUMATOLOGICAL: Denies any joint pain, swelling, or any muscle pain. ENDOCRINE: Denies any polyuria or polydipsia. The rest of the 14-point review of systems is negative. PHYSICAL EXAMINATION: GENERAL: The patient is alert and oriented x3, not in any acute distress. Well developed, well nourished. HEENT: Pupils are round and equally reacting to light. EOMI. No scleral icterus. No conjunctival pallor. Normocephalic, atraumatic. No pharyngeal erythema. No thyromegaly. CARDIOVASCULAR: S1 and S2 present. No murmurs, rubs, or gallops. PULMONARY: Diminished breath sounds at the bases bilaterally ABDOMEN: Soft, nontender, nondistended, normoactive bowel sounds. No palpable organomegaly. MUSCULOSKELETAL: No joint swelling or deformity. EXTREMITIES: No cyanosis, clubbing, or pedal edema. NEUROLOGICAL: Gross neurological examination did not reveal any focal deficits. SKIN: No rashes. Assessment and plan Bilateral pleural effusion Recently diagnosed non-small cell lung carcinoma with metastasis to the pancreatic body as well as left occipital and left frontal lobes of the brain Hyperlipidemia Hypothyroidism Hypertension Weight loss with muscle wasting with dysphagia secondary to large mass of the left neck History of CVA/TIA GERD Hearing disorder with deafness Former smoker, reports recently quitting approximately 3-4 weeks ago Severe protein calorie malnutrition with a BMI of 15.1 Monitor vital signs Monitor CBC Monitor CMP Continue telemetry monitoring Encourage use of I-S Aggressive bronchopulmonary hygiene Continue breathing treatments Continue Synthroid Continue lisinopril and atenolol Continue Lipitor Consult pulmonology Consulted hematology oncology Labs and medication were reviewed.. Continue same treatment. Continue with symptomatic treatment. Resume home medication. Monitor labs and vitals. DVT and GI prophylaxis. Further recommendations as per clinical course of the patient Dictation was produced using [employer]Safe dictation software. please excuse any grammatical, word or spelling errors. Past Medical History Past Medical History: Cancer, CVA/TIA, GERD/Reflux, Hearing Disorder / Deafness, Hyperlipidemia, Hypertension, Musculoskeletal Disorder, Thyroid Disorder Additional Past Medical History / Comment(s): LUNG CANCER. CVA 2014, MILD SPEECH PROB. TOTAL OF 9 STROKES PER SON. LT EAR HEARING LOSS. Collapsed left lung History of Any Multi-Drug Resistant Organisms: None Reported Past Surgical History: Bladder Surgery, Hernia Repair, Hysterectomy Additional Past Surgical History / Comment(s): COLONOSCOPY, thoracentesis Past Anesthesia/Blood Transfusion Reactions: No Reported Reaction Past Psychological History: No Psychological Hx Reported Smoking Status: Former smoker Past Alcohol Use History: None Reported Past Drug Use History: Marijuana Additional Drug Use History / Comment(s): Weekly - Past Family History Father Family Medical History: Cancer Additional Family Medical History / Comment(s): THROAT CA Medications and Allergies Home Medications Medication Instructions Recorded Confirmed Type Atorvastatin [Lipitor] 40 mg PO DAILY 05/13/23 08/28/23 History Cyclobenzaprine [Flexeril] 5 mg PO HS 05/13/23 08/28/23 History Levothyroxine Sodium 112 mcg PO DAILY 05/13/23 08/28/23 History cilostazoL [Pletal] 100 mg PO BID 05/13/23 08/28/23 History atenoloL [Tenormin] 25 mg PO DAILY 05/18/23 08/28/23 History fentaNYL 50MCG/HR PATCH [Duragesic 1 patch TRANSDERM Q72H 07/27/23 08/28/23 History 50MCG/HR] lisinopriL [Zestril] 20 mg PO DAILY 07/27/23 08/28/23 History oxyCODONE-APAP 7.5-325MG [Percocet 1 tab PO Q6HR PRN 07/27/23 08/28/23 History 7.5-325 mg] Acetaminophen Tab [Tylenol] 650 mg PO Q4HR PRN tab 07/28/23 08/28/23 Rx Albuterol Sulfate [Albuterol 2 puff INHALATION RT-Q4H PRN 08/28/23 08/28/23 History Sulfate Hfa] Allergies Allergy/AdvReac Type Severity Reaction Status Date / Time No Known Allergies Allergy Verified 08/28/23 21:53 Physical Exam Vitals: Vital Signs Temp Pulse Pulse Resp BP BP Pulse Ox 08/29/23 07:00 98.4 F 99 16 144/79 98 08/29/23 02:33 98.4 F 86 16 113/64 97 08/28/23 22:46 99.5 F 109 H 15 175/82 99 08/28/23 21:09 105 H 20 160/81 96 08/28/23 19:09 100 20 151/78 100 08/28/23 17:20 99.1 F 100 18 141/96 100 Intake and Output 08/28/23 08/29/23 08/29/23 22:59 06:59 14:59 Other: Voiding Method Toilet Toilet # Voids 1 Weight 43.091 kg Results CBC & Chem 7: 08/28/23 17:47 08/28/23 17:47 Labs: Abnormal Lab Results - Last 24 Hours (Table) 08/28/23 08/28/23 Range/Units 17:47 17:47 WBC 29.6 H (3.8-10.6) k/uL RBC 3.10 L (3.80-5.40) m/uL Hgb 8.9 L (11.4-16.0) gm/dL Hct 28.6 L (34.0-46.0) % RDW 15.6 H (11.5-15.5) % Plt Count 745 H (150-450) k/uL Neutrophils # 27.9 H (1.3-7.7) k/uL Lymphocytes # 0.8 L (1.0-4.8) k/uL BUN 18 H (7-17) mg/dL Creatinine 0.49 L (0.52-1.04) mg/dL Alkaline Phosphatase 143 H (38-126) U/L Albumin 2.8 L (3.5-5.0) g/dL Thrombosis Risk Factor Assmnt - Choose All That Apply Any of the Below Risk Factors Present?: No Each Risk Factor Represents 2 Points: Age 61-74 years Thrombosis Risk Factor Assessment Total Risk Factor Score: 2 Thrombosis Risk Factor Assessment Level: Low Risk
--- NOTE | 2023-08-29 15:24 | P.CONS ---
History of Present Illness - Reason for Consult Consult date: 08/29/23 Metastatic lung cancer - Chief Complaint Dyspnea - History of Present Illness Ms. Alexander is a 62-year-old woman with a past medical history significant for stage EMILIANO adenocarcinoma of the lung with brain metastases status post 5 fractions of SRS treatment to left frontal and occipital lobe metastases, stage IB pancreatic adenocarcinoma, JAK2 positive MPN, and prior CVA who presents for evaluation of increased dyspnea. She received cycle 3 of single agent immunotherapy on 08/28/2023. She noted having increased dyspnea similar to her prior presentation in July 2023, when she was found to have left malignant pleural effusion. She denied any fevers, chills, sick contacts, cough, abd ominal pain, or rash. She has been using her 's oxygen over the past week at 2 L, which had been providing relief. Her son notes they were now starting to run out of oxygen at home. She denies any significant weight loss over the past month. Following treatment, she had chest x-ray performed outpatient on 08/28/2023 with official read pending. There was noted to be small left pleural effusion along with increased opacification of the left hemithorax compared to the right. Due to concerns for shortness of breath and requiring supplemental oxygen, she presented to the ED for additional management recommendations. On presentation to the ED, she was noted to be afebrile and overall hemodynamically stable. She was 97% on room air, but subsequently placed on supplemental nasal cannula. Labs revealed neutrophilic leukocytosis with WBC 29.6 (ANC 27.9), hemoglobin 8.9, platelets 745. CMP noted no acute metabolic abnormalities. NT proBNP was 2470 with negative troponin. She was subsequently admitted for additional management recommendations. Currently, she notes having improved breathing compared to initial presentation. She denies any new signs or symptoms. Review of Systems 14 point review of systems was conducted with pertinent positives and negatives as noted per HPI Past Medical History Past Medical History: Cancer, CVA/TIA, GERD/Reflux, Hearing Disorder / Deafness, Hyperlipidemia, Hypertension, Musculoskeletal Disorder, Thyroid Disorder Additional Past Medical History / Comment(s): LUNG CANCER. CVA 2015, MILD SPEECH PROB. TOTAL OF 9 STROKES PER SON. LT EAR HEARING LOSS. Collapsed left lung History of Any Multi-Drug Resistant Organisms: None Reported Past Surgical History: Bladder Surgery, Hernia Repair, Hysterectomy Additional Past Surgical History / Comment(s): COLONOSCOPY, thoracentesis Past Anesthesia/Blood Transfusion Reactions: No Reported Reaction Past Psychological History: No Psychological Hx Reported Smoking Status: Former smoker Past Alcohol Use History: None Reported Past Drug Use History: Marijuana Additional Drug Use History / Comment(s): Weekly - Past Family History Father Family Medical History: Cancer Additional Family Medical History / Comment(s): THROAT CA Medications and Allergies Home Medications Medication Instructions Recorded Confirmed Type Atorvastatin [Lipitor] 40 mg PO DAILY 05/13/23 08/28/23 History Cyclobenzaprine [Flexeril] 5 mg PO HS 05/13/23 08/28/23 History Levothyroxine Sodium 112 mcg PO DAILY 05/13/23 08/28/23 History cilostazoL [Pletal] 100 mg PO BID 05/13/23 08/28/23 History atenoloL [Tenormin] 25 mg PO DAILY 05/18/23 08/28/23 History fentaNYL 50MCG/HR PATCH [Duragesic 1 patch TRANSDERM Q72H 07/27/23 08/28/23 History 50MCG/HR] lisinopriL [Zestril] 20 mg PO DAILY 07/27/23 08/28/23 History oxyCODONE-APAP 7.5-325MG [Percocet 1 tab PO Q6HR PRN 07/27/23 08/28/23 History 7.5-325 mg] Acetaminophen Tab [Tylenol] 650 mg PO Q4HR PRN tab 07/28/23 08/28/23 Rx Albuterol Sulfate [Albuterol 2 puff INHALATION RT-Q4H PRN 08/28/23 08/28/23 History Sulfate Hfa] Allergies Allergy/AdvReac Type Severity Reaction Status Date / Time No Known Allergies Allergy Verified 08/28/23 21:53 Physical Exam Vitals: Vital Signs Temp Pulse Pulse Resp BP BP Pulse Ox 08/29/23 14:53 98.6 F 53 L 16 152/84 98 08/29/23 07:00 98.4 F 99 16 144/79 98 08/29/23 02:33 98.4 F 86 16 113/64 97 08/28/23 22:46 99.5 F 109 H 15 175/82 99 08/28/23 21:09 105 H 20 160/81 96 08/28/23 19:09 100 20 151/78 100 08/28/23 17:20 99.1 F 100 18 141/96 100 Intake and Output 08/29/23 08/29/23 08/29/23 06:59 14:59 22:59 Other: Voiding Method Toilet Toilet # Voids 1 1 # Bowel Movements 1 Weight 43.091 kg - Constitutional General appearance: cooperative, no acute distress, thin - EENT Eyes: EOMI - Respiratory Respiratory: right: diminished ( right lung base), bilateral: rhonchi - Cardiovascular Rhythm: regular - Gastrointestinal General gastrointestinal: no distended, normal bowel sounds, soft, no tenderness - Neurologic Neurologic: CNII-XII intact Results CBC & Chem 7: 08/28/23 17:47 08/28/23 17:47 Labs: Abnormal Lab Results - Last 24 Hours (Table) 08/28/23 08/28/23 Range/Units 17:47 17:47 WBC 29.6 H (3.8-10.6) k/uL RBC 3.10 L (3.80-5.40) m/uL Hgb 8.9 L (11.4-16.0) gm/dL Hct 28.6 L (34.0-46.0) % RDW 15.6 H (11.5-15.5) % Plt Count 745 H (150-450) k/uL Neutrophils # 27.9 H (1.3-7.7) k/uL Lymphocytes # 0.8 L (1.0-4.8) k/uL BUN 18 H (7-17) mg/dL Creatinine 0.49 L (0.52-1.04) mg/dL Alkaline Phosphatase 143 H (38-126) U/L Albumin 2.8 L (3.5-5.0) g/dL Chest x-ray: image reviewed Assessment and Plan (1) Pancreatic cancer Current Visit: Yes Status: Chronic Code(s): C25.9 - MALIGNANT NEOPLASM OF PANCREAS, UNSPECIFIED SNOMED Code(s): 021551859 (2) MPN (myeloproliferative neoplasm) Current Visit: Yes Status: Chronic Code(s): D47.1 - CHRONIC MYELOPROLIFERATIVE DISEASE SNOMED Code(s): 217795322 (3) Metastatic non-small cell lung cancer Current Visit: No Status: Chronic Priority: High Code(s): C34.90 - MALIGNANT NEOPLASM OF UNSP PART OF UNSP BRONCHUS OR LUNG SNOMED Code(s): 024765664 (4) Shortness of breath Current Visit: No Status: Acute Code(s): R06.02 - SHORTNESS OF BREATH SNOMED Code(s): 191912368 Plan: #Dyspnea -Increased dyspnea over the past week requiring use of her supplemental oxygen at 2 L nasal cannula -No cough, hemoptysis, or signs or symptoms concerning for infection -Chest x-ray obtained on 08/28/2023 noted small pleural effusions bilaterally along with opacification of left hemithorax compared to the right -She remained stable on 2 L supplemental nasal cannula -Per pulmonology, there is no utility for thoracentesis as her pleural effusions are small -Is not clear if her dyspnea is secondary to potential infectious etiology, pulmonary embolism, or less likely pneumonitis secondary to immunotherapy -Agree with CTA to rule out pulmonary embolism and obtain more detailed imaging of the lungs #Metastatic lung cancer -Noted to have left upper lobe lesion with metastases to the brain in the left neck -PD-L1 90%, noted to have KRAS G12C mutation that can be targeted in the second line treatment -Received 5 treatments of SRS to the brain lesions and initiated cycle 1 of single agent immunotherapy due to PD-L1 of 90% on 07/08/2023 with Keytruda -Received 2 subsequent cycles with Libtayo, most recently on 08/28/2023 -Plan is to repeat imaging following 3 cycles of treatment -Obtain CTA as noted above for now #Pancreatic cancer -During work-up for lung cancer, she was noted to have FDG avid lesion in the distal pancreatic body on PET/CT -EGD with EUS on 06/30/2023 revealed adenocarcinoma -It is thought that this is a separate primary as opposed to a metastatic lesion of the lung cancer -Given that the lung cancer was more advanced than the pancreatic lesion, plan was to reassess this lesion following 3 cycles of treatment for lung cancer as noted above #Myeloproliferative neoplasm -JAK2 mutation ([id number]) noted on testing in June 2023 -She has neutrophilic leukocytosis and thrombocytosis with normocytic normochromic anemia likely secondary to this in addition to known metastatic malignancy contributing to leukocytosis and thrombocytosis -Recommended baby aspirin 81 mg daily to help prevent VTE Enrrique Felix MD
--- NOTE | 2023-08-29 19:01 | CT ---
EXAMINATION TYPE: CT angio chest CT DLP: 137.4 mGycm, Automated exposure control for dose reduction was used. DATE OF EXAM: 08/29/2023 12:27 PM COMPARISON: CTA chest 07/27/2023 and earlier exams. CLINICAL INDICATION:Female, 62 years old with history of Pleural effusion; SOB, pleural effusion TECHNIQUE/CONTRAST: CTA scan of the thorax is performed with IV Contrast, patient injected with 100 mL of Isovue 370, wit h multiplanar reformats and MIP images created on a separate workstation.. FINDINGS: Examination is overall limited by cachexia and poor definition of soft tissue planes. Pulmonary Artery: Main pulmonary artery is enhancing and appears nonenlarged. No definite intrinsic f illing defects are seen in the pulmonary arteries to suggest pulmonary embolus. However there is mild mass effect on branches of the right pulmonary artery in the right hilum, due to some extrinsic comp ression by enlarged hilar lymph node conglomerate. Similar appearance of some extrinsic narrowing of the left pulmonary arterial branches within the left hilum, and the left upper lobe artery is again s een to taper just beyond its origin and becomes nonopacified farther distally in the region of the ma ss. Lungs/Pleura: Left lung: Previous large left pleural effusion appears decreased in size, with moderate residual compared to pr ior. New small pneumothorax component at the left lung apex. Large soft tissue density again suggeste d in the region of the left upper lobe with extension to the hilum, difficult to measure precisely bu t appears similar to the previous. There is improved compressive atelectasis of the left lower lobe, with better visualization of the lung, however there are some patchy opacities within the aerated lef t lower lobe now seen. Right lung: Moderate sized right pleural effusion appears grossly stable. Previous groundglass infiltrate in the right upper lobe appears reduced with small residual. Stellate pleural thickening at the right lung a pex is similar. Stable subcentimeter lung nodules on the right include a 6.5 mm nodule series 6 image 18, and a 5.5 mm nodule in the superior segment right lower lobe. A few other scattered tiny nodules can be seen, some not clearly present before. Airway: Central airways appear patent, with some frothy and small globular secretions noted in the mi dportion of the trachea. The right tracheobronchial tree appears grossly patent. Again the left lower lobe bronchi appear patent, however there is again tapering and occlusion of the left upper lobe bro nchus proximally, which is concerning for tumor invasion of the bronchus; this appears similar to pre vious. Heart: Heart size upper normal. Moderate coronary arterial calcifications. Pericardial soft tissue de nsity again appears in contiguity with the left lung mass and may represent direct invasion of the me diastinum and/or posttreatment changes. This also extends in contiguity with soft tissue thickening i n the left hilum suggestive of metastatic adenopathy however is not reproducibly measurable. Vasculature: Moderate mostly calcified plaque throughout the visualized aorta. Mild narrowing of the branch vessels suspected along the arch, however not well assessed due to adjacent artifacts. No diss ection flap is seen. There is question of a small filling defect in the left superior pulmonary vein, which could reflect thrombus versus direct tumor invasion. Mediastinum: Moderate sized hiatal hernia is faintly seen. Ill-defined soft tissue density throughout the mediastinum again seen without discrete measurable nodes, could relate to posttreatment changes and/or metastatic involvement. Right hilar conglomerate adenopathy appears somewhat larger, for examp le 3.8 x 2.8 cm series 5 image 74, versus 2.3 x 1.5 cm previously on an analogous slice. Musculoskeletal: No definite acute osseous abnormality or destructive bone lesion. Mild/moderate diff use degenerative changes. Soft Tissues: No acute normality. Generally decreased intrinsic contrast of the soft tissues may be r elated to cachexia or posttreatment changes. Lower neck: Mass at the left base of neck described previously is difficult to measure precisely due to ill-defined margins but is about 5.2 x 4.3 cm series 5 image 11, without significant interval novak ge. This may extend in contiguity with soft tissue density at the left lung apex. Upper Abdomen: Poor definition of soft tissue planes. Upper abdominal adenopathy or mass cannot be ad equately assessed. Mixed atherosclerotic disease of the upper abdominal aorta with moderate narrowing of the proximal celiac artery, mild narrowing of the proximal SMA, and moderate narrowing of the jasmyne ateral renal arteries proximally. Partially visualized 2.8 x 2.8 cm fusiform aneurysm of the infraren al aorta, with some peripheral crescentic soft plaque without significant luminal narrowing. IMPRESSION: 1. No intrinsic defect identified to suggest acute pulmonary embolism. 2. Grossly stable appearance of left upper lung mass and large mass in the left lower neck. 3. Suspected left hilar and mediastinal tumor invasion and/or posttreatment changes, similar to befo re. 4. Previous large left pleural effusion has decreased in size, now moderate, with small pneumothorax component seen near the left lung apex. 5. Somewhat improved atelectasis of the left lower lobe, with patchy consolidative opacities in this lobe which might represent edema, atelectasis, infection, and/or tumor involvement. 6. Redemonstration of mass effect on the left pulmonary arterial vasculature with nonvisualization o f the left upper lobe pulmonary arterial vasculature. 7. Possible small filling defect in the left superior pulmonary vein, may represent tumor invasion v ersus thrombus. 8. Left upper lobe bronchus again shows a cut off appearance, suggestive of tumor involvement. 9. Improved right upper lobe airspace opacity, may represent infectious/inflammatory process versus tumor involvement. 10. Small to moderate right pleural effusion appears essentially stable. 11. Enlarging right hilar sunny conglomerate, suggesting progression of disease. 12. Redemonstration of mild extrinsic mass effect on the right pulmonary arterial branches within th e hilum, the vessels appear to remain patent. 13. Several subcentimeter nodular densities in the right lung, some grossly stable and others not cl early seen before; some slight disease progression is not excluded, recommend attention on follow-up imaging. 14. Some strandy and globular filling defects within the trachea, could be related to mucous secreti ons or aspiration. 15. Other chronic and likely incidental findings, as described above. RECOMMENDATION: Further follow-up evaluation with outpatient CT and/or PET/CT when clinically indicat ed.
[2023-08-29] MEDS: CYCLOBENZAPRINE 5 MG TAB PO SCH (20:00)
[2023-08-29] MEDS: oxyCODONE-APAP 7.5-325MG 1 EACH TAB PO PRN (20:02)
[2023-08-30] MEDS: LEVOTHYROXINE 112 MCG TAB PO SCH (05:22)
[2023-08-30] MEDS: oxyCODONE-APAP 7.5-325MG 1 EACH TAB PO PRN ×3 (05:25→17:39)
[2023-08-30] MEDS: atenoloL 25 MG TAB PO SCH (09:45)
[2023-08-30] MEDS: ATORVASTATIN 40 MG TAB PO SCH (09:45)
[2023-08-30] MEDS: lisinopriL 20 MG TAB PO SCH (09:45)
[2023-08-30] MEDS: cilostazoL 100 MG TAB PO SCH ×2 (09:45→20:24)
[2023-08-30 12:03] LABS: HCT 24.8 % (34.0-46.0); HGB 7.7 gm/dL (11.4-16.0); Hypochromasia Marked; MCH 28.6 pg (25.0-35.0); MCV 92.3 fL (80.0-100.0); Mean Platelet Volume 8.5; Platelet Count 671 k/uL (150-450); RBC 2.69 m/uL (3.80-5.40); RDW 15.6 % (11.5-15.5); WBC 22.3 k/uL (3.8-10.6)
[2023-08-30 12:18] LABS: ALT 12 U/L (4-34); AST 19 U/L (14-36); African American GFR (CKD) >90 (>60 ml/min/1.73 sqM); Albumin 2.6 g/dL (3.5-5.0); Albumin/Globulin Ratio 0.6; Alkaline Phosphatase 125 U/L (38-126); Anion Gap 13 mmol/L; Blood Urea Nitrogen 13 mg/dL (7-17); Calcium 8.6 mg/dL (8.4-10.2); Carbon Dioxide 24 mmol/L (22-30); Chloride 103 mmol/L (98-107); Globulin 4.1 g/dL; Glucose 116 mg/dL (74-99); Non-African American GFR(CKD) >90 (>60 ml/min/1.73 sqM); Potassium 4.2 mmol/L (3.5-5.1); Sodium 140 mmol/L (137-145); Total Bilirubin 0.4 mg/dL (0.2-1.3); Total Protein 6.7 g/dL (6.3-8.2)
--- NOTE | 2023-08-30 12:49 | P.PN ---
Subjective Progress Note Date: 08/30/23 patient is 62-year-old lady with past medical history of lung cancer with metastasis to the neck,CVA/TIA, GERD, hearing disorder, hyperlipidemia, hypertension, thyroid disorder and former smoker who presented to the ER because of worsening shortness of breath. Patient was recently seen in the hospital in July of this year for similar complaints at this time, patient had Thoracentesis for left-sided pleural effusion done. Patient was all right one week back when she started noticing increasing shortness of breath on exertion. Patient also complaining of increased lethargy and weakness. Denies any fever or chills. There was no complain any chest pain. No complain of nausea, vomiting abdominal pain. Patient states shortness of breath was similar to her previous episode when she was diagnosed with pleural effusions and had thoracentesis done. Because of the symptoms, patient came to the ER Initial lab work done in the ER showed WBC 29.6, hemoglobin 8.9, platelet count 745, sodium 140, potassium 3.8, BUN 18, creatinine 0.49 Chest x-ray done in the ER showed bilateral pleural effusions Patient admitted to medicine service 08/30. Patient seen and examined. CTA chest done showed no evidence of PE, grossly stable appearance of left upper lung mass and large mass in the left lower neck. Still having shortness of breath on exertion. Temperature 97.6, heart rate 99, respirations 16, blood pressure 130/76. REVIEW OF SYSTEMS: CONSTITUTIONAL: No fever, no malaise,. CARDIOVASCULAR: No chest pain, no palpitations, no syncope. PULMONARY: As mentioned above GASTROINTESTINAL: No diarrhea, no nausea, no vomiting, no abdominal pain. NEUROLOGICAL: No headaches, no weakness, PHYSICAL EXAMINATION: GENERAL: The patient is alert and oriented x3, not in any acute distress. Well developed, well nourished. HEENT: Pupils are round and equally reacting to light. EOMI. No scleral icterus. No conjunctival pallor. Normocephalic, atraumatic. No pharyngeal erythema. No thyromegaly. CARDIOVASCULAR: S1 and S2 present. No murmurs, rubs, or gallops. PULMONARY: Chest is clear to auscultation, no wheezing or crackles. ABDOMEN: Soft, nontender, nondistended, normoactive bowel sounds. No palpable organomegaly. MUSCULOSKELETAL: No joint swelling or deformity. EXTREMITIES: No cyanosis, clubbing, or pedal edema. NEUROLOGICAL: Gross neurological examination did not reveal any focal deficits. SKIN: No rashes. Assessment and plan Malignant left-sided pleural effusion, with recent thoracentesis and removal of 1.5 L of pleural fluid, current effusion is small Small right-sided pleural effusion Recently diagnosed non-small cell lung carcinoma with metastasis to left occipital and left frontal lobes of the brain Pancreatic cancer Myeloproliferative neoplasm Hyperlipidemia Hypothyroidism Hypertension Weight loss with muscle wasting with dysphagia secondary to large mass of the left neck History of CVA/TIA GERD Hearing disorder with deafness Former smoker, reports recently quitting approximately 3-4 weeks ago Severe protein calorie malnutrition with a BMI of 15.1 Monitor vital signs Monitor CBC Monitor CMP Continue telemetry monitoring Encourage use of I-S In regards to hypertension continue lisinopril and atenolol Regards to hyperlipidemia continue Lipitor In regards to hypothyroid continue Synthyroid Pulmonology following, don't recommend thoracentesis at this time Hematology oncology following Labs and medication were reviewed.. Continue same treatment. Continue with symptomatic treatment. Resume home medication. Monitor labs and vitals. DVT and GI prophylaxis. Further recommendations as per clinical course of the patient Dictation was produced using [employer] dictation software. please excuse any grammatical, word or spelling errors. Objective - Vital Signs Vital signs: Vital Signs Temp 97.6 F 08/30/23 07:00 Pulse 95 08/30/23 07:00 Resp 16 08/30/23 07:00 BP 138/76 08/30/23 07:00 Pulse Ox 97 08/30/23 07:00 FiO2 Intake & Output 08/29/23 08/30/23 08/30/23 18:59 06:59 18:59 Weight 43.091 kg Other: Voiding Method Toilet Toilet # Voids 1 1 # Bowel Movements 1 - Labs CBC & Chem 7: 08/30/23 11:19 08/30/23 11:19
--- NOTE | 2023-08-30 13:28 | P.PN ---
Subjective Progress Note Date: 08/30/23 This is a 62-year-old female patient, hospitalized for shortness of breath. The patient is known to have metastatic non-small cell lung cancer of the lung with malignant left-sided pleural effusion. Initial CAT scan of the chest that was done on 04/06/2023 showed a large 7 x 6 cm pigmented soft tissue mass in the left perihilar region extending into the left upper lobe and invading the mediastinum and also causing obstruction of the left upper lobe bronchus. In addition, the patient had several pulmonary nodules largest in the right upper lobe measuring 1.7 cm and 5 mm and another 2 mm another densities in the right lower lobe and a 7 mm nodule in the left upper lobe. PET/CT that was done on 04/24/2023 showed metabolic intake and the involved area and in the distal pancreatic body. I performed a bronchoscopy on this patient on 05/18/2023 and the pathology was consistent with poorly differentiated non-small cell lung cancer. MRI of the brain that was done on 06/08/2023 showed metastatic lesions in the left frontal and occipital lobes. The PDL 1 expression was a mild 90% and the patient had KG 12 C mutation. Subsequently, the patient underwent a endoscopic ultrasound/EGD and biopsy of the pancreatic mass was positive for adenocarcinoma. She started radiation therapy to her left neck mass on 07/22/2023. 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 She did have cycle 1 of single agent Keytruda on 07/08/2023, and later on, the patient was started on libtayo . She presented to the hospital on 07/28/2023 and she was found to have a large left-sided pleural effusion and the drainage was done and the patient had a 1.5 L of fluid removed from the left pleural space and the fluid cytology was also noted to be positive for malignancy. She presented to the emergency department with worsening shortness of breath. Chest x-ray was done and shows a left perihilar mass and a left-sided pleural effusion. I was asked to evaluate the patient regarding left-sided pleural effusion. I noted that the fluid was quite limited and I ordered a CAT scan of the chest. The computed tomography scan of the chest was completed and it showed again a large left upper lobe mass causing complete obstruction of the left upper lobe bronchus. The patient had a very small left- sided pleural effusion and a small right-sided pleural effusion was also noted. The mediastinum on the right side was also involved as the patient had bulky hilar lymphadenopathy, the airway however was patent. Some atelectatic changes seen in the right lung base. A tiny pneumothorax is also present in the left apex. The seconds currently at 29, he was at 8.9, BUN is at 18 with a creatinine of 0.4. Troponins are negative. UA is negative. Hemoglobin is at 8 .9. Normal coagulation profile. She is currently on 2 L of oxygen by nasal cannula with a pulse ox of 98%. She is afebrile. Breathing is nonlabored. 08/30/2023, no new complaints and the patient is currently on room air oxygen. Feeling well. No significant shortness of breath. Blood work is showing a white cell count of 22 which is improved compared to yesterday. Hemoglobin dropped onto 7.7. Is at 30 with a creatinine of 0.4 and a sodium level is at 140. Hemodynamically stable. Objective - Vital Signs Vital signs: Vital Signs Temp 97.6 F 08/30/23 07:00 Pulse 95 08/30/23 07:00 Resp 16 08/30/23 07:00 BP 138/76 08/30/23 07:00 Pulse Ox 97 08/30/23 07:00 FiO2 Intake & Output 08/29/23 08/30/23 08/30/23 18:59 06:59 18:59 Weight 43.091 kg Other: Voiding Method Toilet Toilet Toilet # Voids 1 1 # Bowel Movements 1 - Exam GENERAL EXAM: Alert, 62-year-old white female, comfortable in no apparent distress. The patient is currently on room air oxygen by nasal cannula. He has she looks quite cachectic with a body mass index is 17.9 HEAD: Normocephalic and atraumatic EYES: Normal reaction of pupils, equal size. NOSE: Clear with pink turbinates. THROAT: No erythema or exudates. NECK: Left neck mass. no JVD. CHEST: No chest wall deformity. LUNGS: Diminished left lung sounds. No wheezes, rhonchi, crackles. On 2 L/m nasal cannula. No conversational dyspnea or accessory muscle use.. CVS: S1 and S2 normal with no audible murmur, regular rhythm. No extra heart sounds ABDOMEN: No hepatosplenomegaly, active bowel sounds, no guarding or rigidity. SPINE: No scoliosis or deformity SKIN: No rashes CENTRAL NERVOUS SYSTEM: No focal deficits, tone is normal in all 4 extremities. EXTREMITIES: There is no peripheral edema or cyanosis. There is clubbing. Peripheral pulses are intact. - Labs CBC & Chem 7: 08/30/23 11:19 08/30/23 11:19 Assessment and Plan Plan: Metastatic adenocarcinoma of the lung. The patient has a large bulky mass in the left suprahilar area invading the mediastinum causing obstruction of the left upper lobe bronchus. The patient has stage IV disease with TOY PAINTER metastases and malignant left-sided pleural effusion and pancreatic metastases. The patient has bulky mediastinal lymphadenopathy involving the right. The patient had a PDL 1 expression of 90%. The patient also had KG 12 C mutation. The pat ient subsequently was found to have a JAK2 exon 12 through 15 mutation ([id number]). The patient is currently on libtayo Malignant left-sided pleural effusion, post drainage and removal of 1.5 L of pleural fluid, current effusion is small Small right-sided pleural effusion Metastatic TOY PAINTER lesions involving left frontal and occipital lobes, asymptomatic and the patient was not given any radiation therapy at this point Metastatic pancreatic mass, biopsy confirmed Acute hypoxic respiratory failure currently on room air oxygen Shortness of breath secondary to above Leukocytosis, likely reactive. No evidence of any pneumonia based on the CAT scan findings, improving History of CVA Hypertension Hyperlipidemia Hypothyroidism Plan Less shortness of breath on today's evaluation White cell count is improving Oxygenation improved No role for thoracentesis as the left-sided pleural effusion is very tiny and right-sided pleural effusion is small Titrate oxygen flow to maintain saturation above 90% Oncology consultation Monitor white cell count Prognosis poor based above-mentioned malignancy with obvious disease progression.
[2023-08-30] MEDS: CALCIUM CARBONATE 500 MG CHEWABLE PO PRN (18:09)
[2023-08-30] MEDS: CYCLOBENZAPRINE 5 MG TAB PO SCH (20:24)
[2023-08-30] MEDS: HYDROmorphone 1 MG/ML 1 ML SYRINGE IVP PRN (21:45)
--- NOTE | 2023-08-30 22:58 | P.PN ---
Subjective Progress Note Date: 08/30/23 -No acute events overnight -Resting comfortably on today's assessment with no supplemental oxygen use -Denies any new signs or symptoms Objective - Vital Signs Vital signs: Vital Signs Temp 98.4 F 08/30/23 20:34 Pulse 94 08/30/23 20:34 Resp 16 08/30/23 20:34 BP 155/83 08/30/23 20:34 Pulse Ox 98 08/30/23 14:57 FiO2 Intake & Output 08/30/23 08/30/23 08/31/23 06:59 18:59 06:59 Other: Voiding Method Toilet Toilet Toilet # Voids 1 2 1 # Bowel Movements 1 - Constitutional General appearance: Present: cooperative, no acute distress - EENT Eyes: Present: EOMI - Respiratory Respiratory: left: diminished (Lower lung field), wheezing (Left middle lung field) - Cardiovascular Rhythm: regular - Gastrointestinal General gastrointestinal: Present: soft. Absent: distended, tenderness - Integumentary Integumentary: Absent: rash - Labs CBC & Chem 7: 08/30/23 11:19 08/30/23 11:19 Labs: Abnormal Lab Results - Last 24 Hours (Table) 08/30/23 08/30/23 Range/Units 11:19 11:19 WBC 22.3 H (3.8-10.6) k/uL RBC 2.69 L (3.80-5.40) m/uL Hgb 7.7 L (11.4-16.0) gm/dL Hct 24.8 L (34.0-46.0) % RDW 15.6 H (11.5-15.5) % Plt Count 671 H (150-450) k/uL Creatinine 0.46 L (0.52-1.04) mg/dL Glucose 116 H (74-99) mg/dL Albumin 2.6 L (3.5-5.0) g/dL - Imaging and Cardiology CT scan - chest: image reviewed Assessment and Plan (1) Pancreatic cancer Current Visit: Yes Status: Chronic Code(s): C25.9 - MALIGNANT NEOPLASM OF PANCREAS, UNSPECIFIED SNOMED Code(s): 383025819 (2) MPN (myeloproliferative neoplasm) Current Visit: Yes Status: Chronic Code(s): D47.1 - CHRONIC MYELOPROLIFERATIVE DISEASE SNOMED Code(s): 350853287 (3) Metastatic non-small cell lung cancer Current Visit: No Status: Chronic Priority: High Code(s): C34.90 - MALIGNANT NEOPLASM OF UNSP PART OF UNSP BRONCHUS OR LUNG SNOMED Code(s): 832795219 (4) Shortness of breath Current Visit: No Status: Acute Code(s): R06.02 - SHORTNESS OF BREATH SNOMED Code(s): 793012364 Plan: #Dyspnea -Increased dyspnea over the past week requiring use of her supplemental oxygen at 2 L nasal cannula -No cough, hemoptysis, or signs or symptoms concerning for infection -Chest x-ray obtained on 08/28/2023 noted small pleural effusions bilaterally along with opacification of left hemithorax compared to the right -CT angio revealed no evidence of pulmonary embolism, pneumonia, or immunotherapy induced pneumonitis. In addition, there is no evidence of overt disease progression -There was noted pulmonary vein thrombosis versus tumor invasion -She was breathing comfortably on room air on today's assessment -If she continues to be breathing comfortably, no additional intervention is needed at this time -If she has recurrent dyspnea with hypoxia, she should be started on therapeutic anticoagulation with DOAC for treatment of pulmonary vein thrombosis #Metastatic lung cancer -Noted to have left upper lobe lesion with metastases to the brain in the left neck -PD-L1 90%, noted to have KRAS G12C mutation that can be targeted in the second line treatment -Received 5 treatments of SRS to the brain lesions and initiated cycle 1 of single agent immunotherapy due to PD-L1 of 90% on 07/08/2023 with Keytruda -Received 2 subsequent cycles with Libtayo, most recently on 08/28/2023 -CT angio noted no overt evidence of disease progression as noted above -Plan is to repeat imaging following 3 cycles of treatment #Pancreatic cancer -During work-up for lung cancer, she was noted to have FDG avid lesion in the distal pancreatic body on PET/CT -EGD with EUS on 06/30/2023 revealed adenocarcinoma -It is thought that this is a separate primary as opposed to a metastatic lesion of the lung cancer -Given that the lung cancer was more advanced than the pancreatic lesion, plan was to reassess this lesion following 3 cycles of treatment for lung cancer as noted above #Myeloproliferative neoplasm -JAK2 mutation (p.G571S) noted on testing in June 2023 -She has neutrophilic leukocytosis and thrombocytosis with normocytic normochromic anemia likely secondary to this in addition to known metastatic malignancy contributing to leukocytosis and thrombocytosis -Recommended baby aspirin 81 mg daily to help prevent VTE Enrrique Felix MD
[2023-08-31] MEDS: LEVOTHYROXINE 112 MCG TAB PO SCH (05:40)
[2023-08-31 09:07] LABS: ALT 10 U/L (8-44); AST 16 U/L (13-35); Albumin 2.5 d/dL (3.8-4.9); Albumin/Globulin Ratio 0.62 Ratio (1.60-3.17); Alkaline Phosphatase 118 U/L (41-126); Blood Urea Nitrogen 10.6 mg/dL (9.0-27.0); Calcium 8.7 mg/dL (8.7-10.3); Carbon Dioxide 25.7 mmol/L (21.6-31.8); Chloride 102 mmol/L (96-109); Glucose 103 mg/dL (70-110); Potassium 4.2 mmol/L (3.5-5.5); Sodium 140 mmol/L (135-145); Total Bilirubin 0.2 mg/dL (0.3-1.2); Total Protein 6.5 d/dL (6.2-8.2)
[2023-08-31 09:16] LABS: HCT 24.3 % (37.2-46.3); HGB 7.1 d/dL (12.0-15.0); MCH 27.1 pg (27.0-32.0); MCHC 29.2 d/dL (32.0-37.0); MCV 92.7 FL (80.0-97.0); Mean Platelet Volume 10.9 FL (9.5-12.2); NRBC Per 100 WBC 0 X 10*3/uL (0.00-0.01); Platelet Count 693 X 10*3/uL (140-440); RBC 2.62 X 10*6/uL (4.10-5.20); RDW 15.9 % (11.5-14.5); WBC 25.03 X 10*3/uL (4.50-10.00)
[2023-08-31] MEDS: CALCIUM CARBONATE 500 MG CHEWABLE PO PRN (09:44)
[2023-08-31] MEDS: lisinopriL 20 MG TAB PO SCH (09:45)
[2023-08-31] MEDS: ATORVASTATIN 40 MG TAB PO SCH (09:45)
[2023-08-31] MEDS: atenoloL 25 MG TAB PO SCH (09:45)
[2023-08-31] MEDS: cilostazoL 100 MG TAB PO SCH (09:46)
[2023-08-31] MEDS: oxyCODONE-APAP 7.5-325MG 1 EACH TAB PO PRN (11:19)
--- NOTE | 2023-08-31 12:21 | P.DS ---
Providers Date of admission: 08/31/23 06:43 Expected date of discharge: 08/31/23 Attending physician: Alanis Foster Consults: 08/28/23 21:54 Consult Physician Urgent Consulting Provider: Regina Coronado Consult Reason/Comments: dyspnea, pleural effusion Do you want consulting provider notified?: Yes 08/29/23 09:23 Consult Physician Urgent Consulting Provider: Ron Isabel Consult Reason/Comments: Hx of small cell lung cancer, bilateral pleural effusions Do you want consulting provider notified?: Yes Primary care physician: [facility] Course: Discharge diagnoses; Malignant left-sided pleural effusion, with recent thoracentesis and removal of 1.5 L of pleural fluid, current effusion is small Small right-sided pleural effusion Recently diagnosed non-small cell lung carcinoma with metastasis to left occipital and left frontal lobes of the brain Pancreatic cancer Myeloproliferative neoplasm Hyperlipidemia Hypothyroidism Hypertension Weight loss with muscle wasting with dysphagia secondary to large mass of the left neck History of CVA/TIA GERD Hearing disorder with deafness Former smoker, reports recently quitting approximately 3-4 weeks ago Severe protein calorie malnutrition with a BMI of 15.1 Hospital course; patient is 62-year-old lady with past medical history of lung cancer with metastasis to the neck,CVA/TIA, GERD, hearing disorder, hyperlipidemia, hypertension, thyroid disorder and former smoker who presented to the ER because of worsening shortness of breath. Patient was recently seen in the hospital in July of this year for similar complaints at this time, patient had Thoracentesis for left-sided pleural effusion done. Patient was all right one week back when she started noticing increasing shortness of breath on exertion. Patient also complaining of increased lethargy and weakness. Denies any fever or chills. There was no complain any chest pain. No complain of nausea, vomiting abdominal pain. Patient states shortness of breath was similar to her previous episode when she was diagnosed with pleural effusions and had thoracentesis done. Because of the symptoms, patient came to the ER Initial lab work done in the ER showed WBC 29.6, hemoglobin 8.9, platelet count 745, sodium 140, potassium 3.8, BUN 18, creatinine 0.49 Chest x-ray done in the ER showed bilateral pleural effusions Patient admitted to medicine service 08/30. Patient seen and examined. CTA chest done showed no evidence of PE, grossly stable appearance of left upper lung mass and large mass in the left lower neck. Still having shortness of breath on exertion. Temperature 97.6, heart rate 99, respirations 16, blood pressure 130/76. 10/30. Patient seen and examined. Pulmonology and hematology oncology has cleared the patient for discharge. Patient to follow-up outpatient with hematology PHYSICAL EXAMINATION: GENERAL: The patient is alert and oriented x3, not in any acute distress. Well developed, well nourished. HEENT: Pupils are round and equally reacting to light. EOMI. No scleral icterus. No conjunctival pallor. Normocephalic, atraumatic. No pharyngeal erythema. No thyromegaly. CARDIOVASCULAR: S1 and S2 present. No murmurs, rubs, or gallops. PULMONARY: Chest is clear to auscultation, no wheezing or crackles. ABDOMEN: Soft, nontender, nondistended, normoactive bowel sounds. No palpable organomegaly. MUSCULOSKELETAL: No joint swelling or deformity. EXTREMITIES: No cyanosis, clubbing, or pedal edema. NEUROLOGICAL: Gross neurological examination did not reveal any focal deficits. SKIN: No rashes. Dictation was produced using [employer] dictation software. please excuse any grammatical, word or spelling errors. Patient Condition at Discharge: Good Plan - Discharge Summary New Discharge Prescriptions: Continue Levothyroxine Sodium 112 mcg PO DAILY cilostazoL [Pletal] 100 mg PO BID Atorvastatin [Lipitor] 40 mg PO DAILY atenoloL [Tenormin] 25 mg PO DAILY Albuterol Sulfate [Albuterol Sulfate Hfa] 2 puff INHALATION RT-Q4H PRN PRN Reason: Shortness Of Breath Cyclobenzaprine [Flexeril] 5 mg PO HS lisinopriL [Zestril] 20 mg PO DAILY oxyCODONE-APAP 7.5-325MG [Percocet 7.5-325 mg] 1 tab PO Q6HR PRN PRN Reason: Pain fentaNYL 50MCG/HR PATCH [Duragesic 50MCG/HR] 1 patch TRANSDERM Q72H Acetaminophen Tab [Tylenol] 650 mg PO Q4HR PRN tab PRN Reason: Fever Discharge Medication List Atorvastatin [Lipitor] 40 mg PO DAILY 05/13/23 [History] Cyclobenzaprine [Flexeril] 5 mg PO HS 05/13/23 [History] Levothyroxine Sodium 112 mcg PO DAILY 05/13/23 [History] cilostazoL [Pletal] 100 mg PO BID 05/13/23 [History] atenoloL [Tenormin] 25 mg PO DAILY 05/18/23 [History] fentaNYL 50MCG/HR PATCH [Duragesic 50MCG/HR] 1 patch TRANSDERM Q72H 07/27/23 [History] lisinopriL [Zestril] 20 mg PO DAILY 07/27/23 [History] oxyCODONE-APAP 7.5-325MG [Percocet 7.5-325 mg] 1 tab PO Q6HR PRN 07/27/23 [History] Acetaminophen Tab [Tylenol] 650 mg PO Q4HR PRN tab 07/28/23 [Rx] Albuterol Sulfate [Albuterol Sulfate Hfa] 2 puff INHALATION RT-Q4H PRN 08/28/23 [History] Follow up Appointment(s)/Referral(s): Enrrique Felix MD [STAFF PHYSICIAN] - 09/03/23 3:15 pm Kerwin Rao MD [Primary Care Provider] - 1-2 days Discharge Disposition: HOME SELF-CARE
--- NOTE | 2023-08-31 14:17 | P.PN ---
Subjective Progress Note Date: 08/31/23 This is a 62-year-old female patient, hospitalized for shortness of breath. The patient is known to have metastatic non-small cell lung cancer of the lung with malignant left-sided pleural effusion. Initial CAT scan of the chest that was done on 04/06/2023 showed a large 7 x 6 cm pigmented soft tissue mass in the left perihilar region extending into the left upper lobe and invading the mediastinum and also causing obstruction of the left upper lobe bronchus. In addition, the patient had several pulmonary nodules largest in the right upper lobe measuring 1.7 cm and 5 mm and another 2 mm another densities in the right lower lobe and a 7 mm nodule in the left upper lobe. PET/CT that was done on 04/24/2023 showed metabolic intake and the involved area and in the distal pancreatic body. I performed a bronchoscopy on this patient on 05/18/2023 and the pathology was consistent with poorly differentiated non-small cell lung cancer. MRI of the brain that was done on 06/08/2023 showed metastatic lesions in the left frontal and occipital lobes. The PDL 1 expression was a mild 90% and the patient had KG 12 C mutation. Subsequently, the patient underwent a endoscopic ultrasound/EGD and biopsy of the pancreatic mass was positive for adenocarcinoma. She started radiation therapy to her left neck mass on 07/22/2023. 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 She did have cycle 1 of single agent Keytruda on 07/08/2023, and later on, the patient was started on libtayo . She presented to the hospital on 07/28/2023 and she was found to have a large left-sided pleural effusion and the drainage was done and the patient had a 1.5 L of fluid removed from the left pleural space and the fluid cytology was also noted to be positive for malignancy. She presented to the emergency department with worsening shortness of breath. Chest x-ray was done and shows a left perihilar mass and a left-sided pleural effusion. I was asked to evaluate the patient regarding left-sided pleural effusion. I noted that the fluid was quite limited and I ordered a CAT scan of the chest. The computed tomography scan of the chest was completed and it showed again a large left upper lobe mass causing complete obstruction of the left upper lobe bronchus. The patient had a very small left- sided pleural effusion and a small right-sided pleural effusion was also noted. The mediastinum on the right side was also involved as the patient had bulky hilar lymphadenopathy, the airway however was patent. Some atelectatic changes seen in the right lung base. A tiny pneumothorax is also present in the left apex. The seconds currently at 29, he was at 8.9, BUN is at 18 with a creatinine of 0.4. Troponins are negative. UA is negative. Hemoglobin is at 8.9. Normal coagulation profile. She is currently on 2 L of oxygen by nasal cannula with a pulse ox of 98%. She is afebrile. Breathing is nonlabored. 08/30/2023, no new complaints and the patient is currently on room air oxygen. Feeling well. No significant shortness of breath. Blood work is showing a white cell count of 22 which is improved compared to yesterday. Hemoglobin dropped onto 7.7. Is at 30 with a creatinine of 0.4 and a sodium level is at 140. Hemodynamically stable. The patient is seen today 08/31/2023 in follow-up on the regular medical floor. She is up ambulating in her room. Awake and alert in no acute distress. Maintaining O2 saturations in the 90s on 2 L/m per nasal cannula. She does have home oxygen. White count 25.0. Hemoglobin 7.1. Platelets 693. Sodium 140. Potassium 4.2. Bicarb 26. BUN 11. Creatinine 0.5. She is continued on bronchodilators. Dilaudid and a fentanyl patch for pain control. Objective - Vital Signs Vital signs: Vital Signs Temp 98.4 F 08/31/23 07:10 Pulse 113 H 08/31/23 07:10 Resp 23 08/31/23 08:00 BP 145/81 08/31/23 07:10 Pulse Ox 93 L 08/31/23 07:10 FiO2 Intake & Output 08/30/23 08/31/23 08/31/23 18:59 06:59 18:59 Other: Voiding Method Toilet Toilet Toilet # Voids 2 2 # Bowel Movements 1 - Exam GENERAL EXAM: Alert, 62-year-old female, ambulating in her room, in no apparent distress. Currently on 2 liters oxygen by nasal cannula. She looks quite cachectic with a body mass index is 17.9 HEAD: Normocephalic and atraumatic EYES: Normal reaction of pupils, equal size. NOSE: Clear with pink turbinates. THROAT: No erythema or exudates. NECK: Left neck mass. no JVD. CHEST: No chest wall deformity. LUNGS: Diminished left lung sounds. No wheezes, rhonchi, crackles. No conversational dyspnea. CVS: S1 and S2 normal with no audible murmur, regular rhythm. No extra heart sounds ABDOMEN: No hepatosplenomegaly, active bowel sounds, no guarding or rigidity. SPINE: No scoliosis or deformity SKIN: No rashes CENTRAL NERVOUS SYSTEM: No focal deficits, tone is normal in all 4 extremities. EXTREMITIES: There is no peripheral edema or cyanosis. There is clubbing. Peripheral pulses are intact. - Labs CBC & Chem 7: 08/31/23 05:32 08/31/23 05:32 Labs: Abnormal Lab Results - Last 24 Hours (Table) 08/31/23 08/31/23 Range/Units 05:32 05:32 WBC 25.03 H (4.50-10.00) X 10*3/uL RBC 2.62 L (4.10-5.20) X 10*6/uL Hgb 7.1 L (12.0-15.0) d/dL Hct 24.3 L (37.2-46.3) % MCHC 29.2 L (32.0-37.0) d/dL RDW 15.9 H (11.5-14.5) % Plt Count 693 H (140-440) X 10*3/uL Anion Gap 12.30 H (4.00-12.00) mmol/L Creatinine 0.5 L (0.6-1.5) mg/dL BUN/Creatinine Ratio 21.20 H (12.00-20.00) Ratio Total Bilirubin 0.2 L (0.3-1.2) mg/dL Albumin 2.5 L (3.8-4.9) d/dL Globulin 4.0 H (1.6-3.3) d/dL Albumin/Globulin Ratio 0.62 L (1.60-3.17) Ratio Assessment and Plan Assessment: Metastatic adenocarcinoma of the lung. The patient has a large bulky mass in the left suprahilar area invading the mediastinum causing obstruction of the left upper lobe bronchus. The patient has stage IV disease with [employer] metastases and malignant left-sided pleural effusion and pancreatic metastases. The patient has bulky mediastinal lymphadenopathy involving the right. The patient had a PDL 1 expression of 90%. The patient also had KG 12 C mutation. 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 The patient is currently on libtayo Malignant left-sided pleural effusion, post drainage and removal of 1.5 L of pleural fluid, current effusion is small Small right-sided pleural effusion Metastatic [employer] lesions involving left frontal and occipital lobes, asymptomatic and the patient was not given any radiation therapy at this point Metastatic pancreatic mass, biopsy confirmed Acute hypoxic respiratory failure currently on room air oxygen Shortness of breath secondary to above Leukocytosis, likely reactive. No evidence of any pneumonia based on the CAT scan findings, improving History of CVA Hypertension Hyperlipidemia Hypothyroidism Plan: The patient was seen and evaluated Labs and medications reviewed Stable and on 2 L nasal cannula Adequate pain control Has home oxygen Cleared for discharge from the pulmonary standpoint Follow-up in the office in 1 week I have personally seen and examined the patient, performed the documentation and the assessment and plan as written. Number of minutes spent on the visit: 10.
[2023-08-31 14:25] VITALS: BP 138/78; PULSE 95; RESP 15; TEMP 98.6
== END 2023-08-31 16:38 | disposition home or self-care (01) | DRG 180 ==
LOC: EC 16:46 → 6NMEDSUR 21:23 → OBSVTOIN 08-31 06:43
PROVIDERS: ADMIT Hospitalist; ATTEND Hospitalist
DX: C34.90 Malignant neoplasm of unspecified part of unspecified bronchus or lung (principal); E43 Unspecified severe protein-calorie malnutrition; J96.01 Acute respiratory failure with hypoxia; C78.89 Secondary malignant neoplasm of other digestive organs; C79.40 Secondary malignant neoplasm of unspecified part of nervous system; D47.1 Chronic myeloproliferative disease; J91.0 Malignant pleural effusion; C25.9 Malignant neoplasm of pancreas, unspecified; Z68.1 Body mass index [BMI] 19.9 or less, adult; D64.9 Anemia, unspecified; D72.828 Other elevated white blood cell count; D75.839 Thrombocytosis, unspecified; E03.9 Hypothyroidism, unspecified; Z79.890 Hormone replacement therapy; K21.9 Gastro-esophageal reflux disease without esophagitis; Z86.73 Personal history of transient ischemic attack (TIA), and cerebral infarction without residual deficits; E78.5 Hyperlipidemia, unspecified; H91.92 Unspecified hearing loss, left ear; I10 Essential (primary) hypertension; R13.10 Dysphagia, unspecified; Z79.02 Long term (current) use of antithrombotics/antiplatelets; Z79.899 Other long term (current) drug therapy; Z90.710 Acquired absence of both cervix and uterus; Z87.19 Personal history of other diseases of the digestive system
CPT/HCPCS: 36415; 71275; 80053; 83880; 84484; 85025; 85027; 85610; 85730; 93005; 99285

== ENCOUNTER → 2023-08-28 | Outpatient (CLI) | payer OTHER ==
--- NOTE | 2023-08-31 07:54 | XR ---
EXAMINATION TYPE: XR chest 2V DATE OF EXAM: 08/28/2023 COMPARISON: 07/28/2023, 07/27/2023 CT INDICATION: Short of breath history of lung cancer TECHNIQUE: Frontal and lateral views of the chest are obtained. FINDINGS: The heart size is normal. The pulmonary vasculature is normal. Small right pleural effusion is present. Small left pleural effusion is present. There is opacificati on over the left lung. Masslike areas at the level of aortic arch and suprahilar region. There may be some improved aeration compared to prior study. Air-fluid levels in the right apex. Consider cavitar y lesion with fluid. Additional workup can be performed. IMPRESSION: 1. Right upper lobe mass possible cavitation which could be an interval finding. CT chest recommended for additional evaluation. 2. Small bilateral pleural effusions
== END | disposition home or self-care (01) ==
LOC: RADXRMAIN 16:29
PROVIDERS: ATTEND Internal Medicine
DX: C34.11 Malignant neoplasm of upper lobe, right bronchus or lung (principal); C25.2 Malignant neoplasm of tail of pancreas; D45 Polycythemia vera; J90 Pleural effusion, not elsewhere classified; Z71.3 Dietary counseling and surveillance
CPT/HCPCS: 71046